=== PATIENT | female | born 1960 | race Caucasian/White ===

== ENCOUNTER 2019-05-24 23:21 | Emergency (ER) | payer OTHER ==
[~2019-05-24] VITALS: Ht 157.5 cm; Wt 88.6 kg
[2019-05-24] MEDS ORDERED: LAMO200T3 PO (23:56)
[2019-05-24] MEDS ORDERED: HYDR25TAB PO (23:56)
[2019-05-24] MEDS ORDERED: AMIT-253 PO (23:56)
[2019-05-24] MEDS ORDERED: HYDR50TAB PO (23:56)
[2019-05-24] MEDS ORDERED: TOPI200T7 PO (23:56)
[2019-05-24] MEDS ORDERED: BUPR100T3 PO (23:56)
[2019-05-24] MEDS ORDERED: AMLO10TA5 PO (23:56)
[2019-05-24] MEDS ORDERED: CELLOPD OD (23:56)
[2019-05-24] MEDS ORDERED: CLON0.5T2 PO (23:56)
[2019-05-24] MEDS ORDERED: SIMV10TA21 PO (23:56)
[2019-05-25 00:14] LABS: HEMATOCRIT 46.9 % (36.0-47.0); HEMOGLOBIN 15.9 g/dl (12.0-15.5); MEAN CORPUSCULAR HEMOGLOBIN 31.9 pg (27.0-33.0); MEAN CORPUSCULAR HGB CONC 33.9 g/dl (32.0-36.5); PLATELET COUNT, AUTOMATED 338 10^3/uL (150-450); RED BLOOD COUNT 4.99 10^6/uL (4.00-5.40); WHITE BLOOD COUNT 9.5 10^3/uL (4.0-10.0)
[2019-05-25 00:24] LABS: BLOOD UREA NITROGEN 17 MG/DL (7-18); CALCIUM LEVEL 9.4 MG/DL (8.5-10.1); CARBON DIOXIDE LEVEL 27 MEQ/L (21-32); CHLORIDE LEVEL 103 MEQ/L (98-107); CREATININE FOR GFR 1.08 MG/DL (0.55-1.30); GLOMERULAR FILTRATION RATE 55.7 (>51); GLUCOSE, FASTING 108 MG/DL (70-100); POTASSIUM SERUM 3.1 MEQ/L (3.5-5.1); SODIUM LEVEL 141 MEQ/L (136-145)
[2019-05-25 00:25] LABS: ACETAMINOPHEN LEVEL < 2.0 UG/ML (10.0-30.0); ALBUMIN 3.6 GM/DL (3.2-5.2); ALT/SGPT 20 U/L (12-78); BILIRUBIN,DIRECT 0.1 MG/DL (0.0-0.2); BILIRUBIN,TOTAL 0.4 MG/DL (0.2-1.0); ETHYL ALCOHOL (ETHANOL) < 0.003 % (0.000-0.010); SALICYLATE LEVEL < 1.7 MG/DL (5.0-30.0); TOTAL PROTEIN 7.9 GM/DL (6.4-8.2)
[2019-05-25] MEDS ORDERED: AMITRIPTYLINE 10 MG TAB PO ONE (00:45)
[2019-05-25] MEDS ORDERED: TOPIRAMATE (TopAMAX) 25 MG TAB PO ONE (00:45)
[2019-05-25] MEDS ORDERED: lamoTRIgine 100MG TAB PO ONE (00:45)
[2019-05-25] MEDS ORDERED: SIMVASTATIN 10 MG TAB PO ONE (00:45)
[2019-05-25 00:49] LABS: AMPHETAMINES LEVEL URINE NEGATIVE (NEGATIVE); BARBITURATES URINE NEGATIVE (NEGATIVE); BENZODIAZEPINES URINE NEGATIVE (NEGATIVE); CANNABINOIDS URINE POSITIVE (NEGATIVE); COCAINE METABOLITE URINE NEGATIVE (NEGATIVE); METHADONE URINE NEGATIVE (NEGATIVE); OPIATES URINE NEGATIVE (NEGATIVE); PHENCYCLIDINE URINE NEGATIVE (NEGATIVE)
[2019-05-25] MEDS ORDERED: POTASSIUM CHLORIDE 10 MEQ SR TABLET PO ONE (01:00)
[2019-05-25] MEDS ORDERED: METAL LOCK LOOP XX ONE (01:04)
[2019-05-25] MEDS ORDERED: TOPI100T9 PO (01:20)
[2019-05-25 03:06] LABS: APPEARANCE, URINE CLEAR (CLEAR); BACTERIA, URINE AUTO 1+ (NEGATIVE); BILIRUBIN, URINE AUTO NEGATIVE (NEGATIVE); BLOOD, URINE BLOOD 1+ (NEGATIVE); COLOR, URINE YELLOW (YELLOW); GLUCOSE, URINE (UA) AUTO NEGATIVE (NEGATIVE); KETONE, URINE AUTO NEGATIVE (NEGATIVE); LEUKOCYTE ESTERASE, URINE AUTO 3+ (NEGATIVE); NITRITE, URINE AUTO NEGATIVE (NEGATIVE); PROTEIN, URINE AUTO NEGATIVE (NEGATIVE); RBC, URINE AUTO 3 /HPF (0-3); SPECIFIC GRAVITY URINE AUTO 1.013 (1.002-1.035); SQUAMOUS EPITHELIAL CELL UR AU 2 /HPF (0-6); UROBILINOGEN, URINE AUTO 0.2 mg/dL (0.0-2.0); WBC, URINE AUTO 122 /HPF (0-3)
[2019-05-25] MEDS ORDERED: BACTRIM 160MG/800MG DS TAB PO ONE (07:45)
[2019-05-25] MEDS ORDERED: ACETAMINOPHEN TAB 650MG DOSE (2X325MG) PO ONE (10:30)
[2019-05-25] MEDS ORDERED: buPROPion (WELLBUTRIN SR) 100 MG SR TAB PO ONE (11:00)
[2019-05-25] MEDS ORDERED: hydroCHLOROthiazide 25 MG TAB PO ONE (11:00)
[2019-05-25] MEDS ORDERED: amLODIPine 10 MG TAB PO ONE (11:00)
[2019-05-25 11:15] VITALS: BP 129/78
[2019-05-25 12:41] VITALS: BP 121/85
--- NOTE | 2019-05-25 19:44 | ECGEPIP ---
[facility] - ED Test Date: 2019-05-25 Pat Name: JAE LIMA Department: Room: - Gender: Female Social [employer] School: : 1960 Requested By: CLARENCE RAMIREZ Order Number: [id number] Reading MD: Dean Youngblood Measurements Intervals [place] Rate: 98 P: 46 NV: 203 QRS: 76 QRSD: 117 T: 43 QT: 381 QTc: 488 Interpretive Statements SINUS RHYTHM WITH FIRST DEGREE BLOCK POSSIBLE RIGHT ATRIAL ENLARGEMENT POSSIBLE LEFT ATRIAL ENLARGEMENT MODERATE INTRAVENTRICULAR CONDUCTION DELAY PROLONGED QTC NONSPECIFIC ST T WAVE CHANGES NO PRIOR ECG FOR COMPARISON Electronically Signed on 05-25-2019 19:43:52 EST by Dean Youngblood
[2019-05-25] MEDS ORDERED: ENTER DRUG NAME HERE (PATIENT'S OWN MED) PO ONE ×4 (21:00)
== END 2019-05-25 12:45 | disposition short-term general hospital (02) ==
LOC: M ED 23:21
DX: F32.9 Major depressive disorder, single episode, unspecified (principal); R45.851 Suicidal ideations; E87.6 Hypokalemia; I44.0 Atrioventricular block, first degree; I45.89 Other specified conduction disorders; F31.9 Bipolar disorder, unspecified; Z79.899 Other long term (current) drug therapy
CPT/HCPCS: 80048; 80076; 80307; 81001; 84443; 85027; 87086; 93005; 99285; G0480

== ENCOUNTER → 2020-01-09 | Outpatient (CLI) | payer SELFPAY ==
[~2020-01-09] MED LIST: AMIT-253 PO; AMLO1TAB25 PO; BUPR100T3 PO; CELLOPD OD; CLON0.5T2 PO; HYDR25TAB PO; HYDR50TAB PO; LAMO200T3 PO; SIMV10TA21 PO; TOPI100T9 PO; TOPI200T7 PO
== END ==
LOC: M LABSMTC 11:00
PROVIDERS: ATTEND Family Medicine
DX: Z11.59 Encounter for screening for other viral diseases (principal)

== ENCOUNTER → 2020-01-14 | Outpatient (CLI) | payer SELFPAY | LOC: M LABSMTC 10:15 | PROVIDERS: ATTEND Ophthalmology | DX: Z11.59 Encounter for screening for other viral diseases (principal); Z20.828 Contact with and (suspected) exposure to other viral communicable diseases | CPT/HCPCS: C9803; U0003 ==

== ENCOUNTER 2020-07-23 18:51 | Emergency (ER) | payer OTHER ==
[~2020-07-23] VITALS: Ht 157.5 cm; Wt 111.4 kg
[~2020-07-23 18:51] MED LIST changes: -CELLOPD OD; +CELLOPD OU; +HYDR-3490 PO; -HYDR25TAB PO
--- OUTSIDE RECORDS SUMMARY | 2020-07-23 18:56 | CCD ---
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 --21:30 10/29/19September, R.N.ADDITIONAL SURGERIES: 2 Clinical Report - Nurses [facility] Emergency Department [address] [place] [address] Phone #: ext- [phone] 10/29/2019 21:26 Patient: JAE LIMA Sex: F : 1960 Age: 58y Hysterectomy. Radical neck for infection. Repair of cystocele and rectocele. Shoulder Surgery (Roddy). Tonsillectomy. --21:30 10/29/19 Halie Ruiz R.N. History PAST MEDICAL HX: The patient has had a hysterectomy. SOCIAL HX: Current some days light tobacco smoker (cigarette)- less than 1/2 a pack per day. No alcohol use or drug use. She was offered HIV testing but declined. She has not traveled outside the [place] Infectious disease exposure: No infectious disease exposure. (covid screen neg). Patient is not a known carrier of tuberculosis, hepatitis, HIV, MRSA or VRE. Patient is not a known carrier of CRE. SELF HARM ASSESSMENT: Self harm assessment was performed. The patient answered "no" to the question(s) "Have you recently felt down, depressed, or hopeless?", "Do you have thoughts of harming or killing yourself?", "Do you have a plan for harming or killing yourself?", "Have you recently had thoughts about harming or killing others?", "Do you have any dangerous items in your possession?", "Have you noticed less interest or pleasure in doing things?", "Are you here because you tried to hurt yourself?" and "Have you ever tried to hurt yourself before today?". ABUSE ASSESSMENT: Abuse assessment. yes. The patient had positive responses to the question(s) "Do you feel safe in your home?". No report of abuse. NUTRITIONAL RISK ASSESSMENT: The nutritional risk assessment revealed no deficiencies. FUNCTIONAL ASSESSMENT: Functional assessment: no impairments noted. LEARNING NEEDS ASSESSMENT: The learning needs assessment revealed no barriers. FALL RISK ASSESSMENT: Fall risk assessment completed. No risk factors identified. SKIN INTEGRITY ASSESSMENT: Skin integrity risk assessment completed. No skin integrity risk identified. --:10/29/19September, R.N. Interventions To treatment room. --:10/29/19September, R.N.PHYSICAL ASSESSMENTAmbulatory to room.GENERAL / NEURO / PSYCH: Alert. Appears in pain and in distress. Oriented X 4.HEENT: Pupils equal, round and reactive to light. Mucous membranes are pink.RESPIRATORY: Respirations not labored. Breath sounds within normal limits.CVS: Capillary refill less than 2 seconds. Pulses within normal limits.GI / : Abdomen nontender. 3 Clinical Report - Nurses [facility] Emergency Department [address] [place] [address] Phone #: ext- [phone] 10/29/2019 21:26 Patient: JAE LIMA Sex: F : 1960 Age: 58y SKIN: Skin is intact, warm and dry. Skin rash on the right knee, right leg, right ankle, left knee, left leg and left ankle. --21:35 10/29/19 Nael Anderson RN.NURSING PROGRESS NOTESPatient gowned. Head of bed elevated. Reassurance given. Two patient identifiers checked. Bedplaced in lowest position. Brakes of bed on. Patient ready for evaluation- PA notified. --:[facility]/19[facility] 22:10/29/2019 Keflex (Cephalexin Monohydrate) PO Capsules 500 mg given. Allergies verified and confirmed 5 rights. Information reviewed with patient including reason for taking this medication. Verbalizes understanding. --22:10/29/19 Nael Anderson RN 22:02 10/29/2019 Prednisone PO Tablets 60 mg given. Allergies verified and confirmed 5 rights. Information reviewed with patient including reason for taking this medication. Verbalizes understanding. --22:10/29/19 Nael Anderson RN.DISPOSITION / DISCHARGE Condition at departure: improved and stable. Discharge instructions provided and reviewed with the patient. Reviewed medication(s). Prescription(s) sent electronically to pharmacy. Patient verbalized understanding. Written instructions provided in [place]. The patient was discharged by the physician email marketing assistant. She was discharged home. She left ambulatory and via private vehicle. Patient driving. --22:14 10/29/19 Nael colon RN 22:13 10/29/19. BP: 93/70. MAP: 77. HR: 94. RR: 16. O2 saturation: 97%. Pain level now: 0/10. --22:14 10/29/19 Nael Anderson RN.Locked/Released at 10/29/2019 22:14 by Nael Anderson RN Name Value Range Interpretation Code Description Data Alice rce(s) Supporting Document(s) ID Date Data Source [id number] 10/29/2019 09:36:[address] [facility] 1 Clinical Report - Physicians/Mid Levels [facility] Emergency Department [address] [place] [address] Phone #: ext- [phone] 10/29/2019 21:26 Patient: JAE LIMA Sex: F : 1960 Age: 58y Time Seen: 21:50 10/29/2019. Arrived- By private vehicle. Historian- patient.HISTORY OF PRESENT ILLNESS Chief Complaint: SKIN RASH. This started yesterday pt c/o red rash to front of roddy lower legs. States yesterday it was on her left foot and right lower leg. Today it got worse and it's on both lower legs. pt denies being in the sun. pt states it is itchy and feels like needles poking her and is still present. It was abrupt in onset. It is described as itchy and burning. It has been located on the right lower extremity and left lower extremity. No cause has been identified. Similar symptoms previously. None. Recent medical care: Not recently seen/assessed.REVIEW OF SYSTEMSNo fever, chills, sore throat, cough or difficulty breathing. No hoarseness, lump in throat, enlarged lymphnodes, headache or eye irritation. No chest pain, abdominal pain, nausea, diarrhea or difficulty withurination. No genital lesions, joint pain, vomiting or vaginal discharge.PAST HISTORYProblems:Depression.Anxiety Reaction.Bipolar Disorder.Hypertension. Additional Surgeries: Hysterectomy. Radical neck for infection. Repair of cystocele and rectocele. Shoulder Surgery. Tonsillectomy. Medications: Melatonin. Beta Colt. hydroCHLOROthiazide Oral. lamoTRIgine ER Oral. La MICtal Oral. buPROPion HCl Oral. traZODone HCl Oral. 2 Clinical Report - Physicians/Mid [facility] Emergency Department [address] [place] [address] Phone #: ext- [phone] 10/29/2019 21:26 Patient: JAE LIMA Sex: F : 1960 Age: 58y Allergies: No Known Drug Allergy.SOCIAL HISTORYLight tobacco smoker (cigarette)- less than 1/2 a pack per day. No alcohol use or drug use.PHYSICAL EXAMVital Signs: 10/29/2019 21:26 BP: 182/103. MAP: 129. HR: 105. RR: 20. O2 saturation: 97%. Temp: 97.5F. Pain level now: 0/10. Have been reviewed as abnormal. Hypertensive. Tachycardic. Oxygensaturation normal.Appearance: Alert. Oriented X3. No acute distress.Eyes: Pupils equal, round and reactive to light. Conjunctivae and eyelids normal.ENT: Ears normal. Nose normal. Pharynx normal.Neck: Neck supple.CVS: Tachycardia. Heart sounds normal.Respiratory: No respiratory distress.Abdomen: Nontender.Skin: Skin warm and dry. Normal skin turgor. Moderate, well-demarcated, erythematous, macular skinrash with an erythematous base on the right leg and left leg- perfect sock or pant line circumferentiallyaroung both legs where rash stops c/w sun burn or contact dermatitis. No blanching skin rash.Extremities: Extremities nontender.Neuro: Oriented X 3.PROGRESS AND PROCEDURESCourse of Care: :Oct 29 2019. Evaluation after observation. (Discussed possible sunburn vs.exposure to irritant, pt reports adamantly it is not sunburn however seems to be obvious explanation dueto sharp margin. Possible irritant dermatitis from a spray. Pt is concerned about cellulitis will treat withkeflex, unlikely that s its cellulitis due to perfect line). Patient counseled in person regarding the patient's stable condition, diagnosis and need for follow-up. Patient agrees with plan of care. :Oct 29 2019. Disposition: Discharged home in good and improved condition (:Oct 29 2019).CLINICAL IMPRESSION Cellulitis of the right lower leg and left lower leg. First degree sunburn.INSTRUCTIONS Your Current Medications: Your current home medications have been reviewed. 3 Clinical Report - Physicians/Mid Levels [facility] Emergency Department [address] [place] [address] Phone #: fye- [phone] 10/29/2019 21:26 Patient: JAE LIMA Sex: F : 1960 Age: 58y CONTINUE TAKING THE FOLLOWING MEDICATIONS: Beta Colt*. buPROPion HCl Oral. hydroCHLOROthiazide Oral. LaMICtal Oral. lamoTRIgine ER Oral. Melatonin*. traZODone HCl Oral. Prescription Medications: Keflex 500 mg capsule Take 1 capsule three times a day as directed for 10 days -- Dispense 30 capsule. Refills: 0. Substitution permitted. [facility] - [facility] [address], [place] [id number]. . prednisone 20 mg tablet Take 3 tablet once a day for 5 days -- Dispense 15 tablet. Refills: 0. Substitution permitted. Pharmacy - [facility] [address] [facility] ; [place], [place] [phone]. . Follow-up: Follow up with your doctor as scheduled. Reason for referral: evaluation and treatment. Summary of care provided to patient. Understanding of the discharge instructions verbalized by patient.(Electronically signed by [place]CR[place]IA Smart 10/30/2019 07:16) Name Value Range Interpretation Code Description Data Alice rce(s) Supporting Document(s) ID Date Data Source [id number] 08/30/2019 12:35:00 [place] [address] RESPIRATORY CARE REPORT ==== ---------NAME------- NUMBER SEX AGE ADMIT DISC. XRAY# F/C CHUCKY ROWE [id number] F 58 08/28/19 08/29/19 [id number] LBA E/R DATE OF : 1960 M/R# [id number] PH#: [id number] LOCATION: EMERGENCY DEPT EKG [id number] COMP LETE:08/29/19 03:22 T [id number] PHYSICIAN: TAWANNA ESPINOSA Name Value Range Interpretation Code Description Data Alice rce(s) Supporting Document(s) ID Date Data Source [id number] 08/28/2019 09:38:[address] [facility] [address] [facility] Emergency Department [address] [place] [address] Phone #: ext- [phone] 08/28/2019 21:38 Patient: JAE LIMA Sex: F : 1960 Age: 58yWEIGHT:102.0 kg (S) HEIGHT:61 inches (S) BMI:42.5ALLERGIES: NoneCHIEF COMPLAINT: syncopeDIAGNOSIS: Contusion, SyncopeLAB ORDERSOrder Description Priority Entered Acknowledged InitialedUrinalysis (Clean STAT 21:49 08/28/2019 Ack'd: 22:22 23:20 Toyin Fleming [facility]) Danuta Hadley R.N., R.N. Physician;BNP STAT 21:49 08/28/2019 22:03 Nael Anderson RN Physician;CBC w Diff STAT 21:49 08/28/2019 22:03 Nael Anderson RN Physician;CMP STAT 21:49 08/28/2019 22:03 Nael Anderson RN Physician;CPK STAT 21:49 08/28/2019 22:03 Nael Anderson RN Physician;D-Dimer STAT 21:49 08/28/2019 22:03 Nael Anderson RN Physician;Lactic Acid STAT 21:49 08/28/2019 22:03 Nael Anderson RN Physician;Lipase STAT 21:49 08/28/2019 22:03 Nael Anderson RN Physician;Rapid Strep Screen STAT 21:49 08/28/2019 22:20 Aman Fleming R.N. Physician;Influenza Nasal A B STAT 21:49 08/28/2019 22:20 Aman Fleming R.N. Physician;FLU PANEL STAT 22:41 08/28/2019 23:20 Lonnie, [address] [facility] Emergency Department [address] [place] [address] Phone #: ext- [phone] 08/28/2019 21:38 [id number] Sex: F : 1960 Age: 58y Aman Tipton R.N. Physician;DIAGNOSTIC STUDY ORDERSOrder Description Priority Entered Acknowledged InitialedCT Head W/O Cont STAT 23:13 08/28/2019 Ack'd: 23:20 23:50 Lonnie,(Oxygen?(No)) Danuta Hadley R.N., R.N. Physician; Reason for Study: SyncopeCT Chest W/O Cont STAT 23:13 08/28/2019 Ack'd: 23:20 23:50 Lonnie,(Oxygen?(No)) Danuta Hadley R.N., R.N. Physician; NOTES: Syncope Reason for Study: Shortness of BreathCT ABD PEL W/O STAT 23:13 08/28/2019 Ack'd: 23:20 23:50 Lonnie,Oral W/O IV Danuta Hadley R.N., R.N.Contrast Physician;(Oxygen?(No))(IV?(No)) Reason for Study: Abdominal PainMEDICATION/IV/DRIP/FLUID ORDERSOrder Description Priority Entered Acknowledged InitialedIV NS : Bolus 1000 21:50 08/28/2019 Ack'd: 22:21 Danuta Fleming R.N.mL, t hen 250 mL/hr Aman Stacy Cancelled: Unable to obtain IV access(can be titrated per Physician; 23:20 Danuta FlemingNLorenaadditionalphysicianinstruction)Zofran 4 mg IVP X 1 21:50 08/28/2019 Ack'd: 22:21 Danuta Fleming.NLorenadose: 4 mg (NOW Aman Stacy Cancelled: Physician Order 23:14 Alvaro Physician; Tawanna LinZolucero ODT PO 4 23:14 08/28/2019 Ack'd: 23:20 23:22 Lonnie,mg (NOW) Danuta Hadley R.N., R.N. Physician;Meclizine PO 25 mg 01:07 08/29/2019 Ack'd: 01:08 01:15 Lonnie(NOW) Danuta Hadley R.N., R.N. Physician;GENERAL ORDERSOrder Description Priority Entered Acknowledged InitialedCardiac Monitor 21:50 08/28/2019 22:03 Nael(continuous) Aman Anderson RN [address] [facility] Emergency Department [address] [place] [address] Phone #: ext- [phone] 08/28/2019 21:38 Patient: JAE LIMA Sex: F : 1960 Age: 58y Physician;EKG 21:50 08/28/2019 22:20 Aman Fleming R.N. Physician;Saline Lock 21:50 08/28/2019 Ack'd: 22:21 Danuta Fleming R.N. Cancelled: Unable to obtain IV access Physician; 23:50 Danuta Fleming R.N.Pulse oximeter 21:50 08/28/2019 22:03 Nael(Continuous) Aman Anderson RN Physician;[Electronically signed by Danuta Fleming R.N. (:08/29/2019)][Electronically signed by Aman Stacy Physician (05:28 08/29/2019)][Electronically locked by Danuta Fleming R.N. (08/29/2019)] Name Value Range Interpretation Code Description Data Alice rce(s) Supporting Document(s) ID Date Data Source [id number] 08/28/2019 09:38:[address] [facility] [address] [facility] Emergency Department [address] [place] [address] Phone #: ext- [phone] 08/28/2019 21:38 Patient: JAE LIMA Sex: F : 1960 Age: 58yWeight: 102.0 kgHeight/Length: 61 in.BMI: 42.5ALLERGIES: NoneThe patient's Home Medications are listed below:THE FOLLOWING MEDICATIONS NEED TO BE RECONCILED: Aspirin Oral 81 mg, daily Benztropine Mesylate Oral 1 mg, daily Depakote Oral 750 mg, 2x a day, 750 mg AM and 500 mg at night Lamictal Lasix Oral 40 mg, daily PredniSONE Oral 10 mg, daily Pro-air TRAZADONE Zithromax Oral 250 mg, dailyThe source(s) of the original Home Medication information:Not obtained.The following Medications were given to the patient in the Emergency Department:Zofran ODT [PO] PO 4 mg, administered: 08/28/2019 11:22:00 PMMeclizine [PO] PO 25 mg, administered: 08/29/2019 1:15:00 AMThe following Medications were prescribed to the patient: [address] [facility] Emergency Department [address] [place] [address] Phone #: ext- [phone] 08/28/2019 21:38 Patient: JAE LIMA Sex: F : 1960 Age: 58ymeclizine 25 mg tablet Take 1 tablet every eight hours as needed for 5 days -- for nausea / dizziness.Dispense 15 tablet. Refills: 0. Substitution permitted.Pharmacy - [facility] - [address] [facility] ; [place], [place] [phone]. . -- Aman Stacy, Physician Name Value Range Interpretation Code Description Data Alice rce(s) Supporting Document(s) ID Date Data Source [id number] 08/28/2019 09:38:[address] [facility] [address] [facility] Emergency Department [address] [place] [address] Phone #: ext- [phone] 08/28/2019 21:38 Patient: JAE LIMA Sex: F : 1960 Age: 58yWeight: 102.0 kgHeight/Length: 61 inBMI: 42.5ALLERGIES: None Date/Time Medication Administered Medication OrderedGiven ZOFRAN ODT [PO] (ONDANSETRON Zofran ODT PO 4 mg (NOW)23:22 08/28/2019 HCL)Danuta Fleming, RLorenaNLorena Dose: 4 mg Oral Disintegrating Tablets POGiven MECLIZINE [PO] Meclizine PO 25 mg (NOW)01:15 08/29/2019 Dose: 25 mg Tablets Danuta Vitale RLorenaNLorena Name Value Range Interpretation Code Description Data Alice rce(s) Supporting Document(s) ID Date Data Source [id number] 08/28/2019 09:38:[address] [facility] [address] [facility] Emergency Department [address] [place] [address] Phone #: ext- [phone] 08/28/2019 21:38 Patient: JAE LIMA Sex: F : 1960 Age: 58yVasovagal syncope.Contusion to the head and fo rehead.INSTRUCTIONSDrink plenty of fluids.Warnings: Further evaluation is necessary.GENERAL WARNINGS: Return or contact your physician immediately if your condition worsens orchanges unexpectedly, if not improving as expected, or if other problems arise.Prescription Medications:meclizine 25 mg tablet Take 1 tablet every eight hours as needed for 5 days -- for nausea / dizziness.Dispense 15 tablet. Refills: 0. Substitution permitted.Pharmacy - [facility] - [address] [facility] ; [place], [place] [phone]. .Follow-up:Follow up with your doctor today if not better. Call for an appointment. Reason for referral: evaluation,treatment and Syncope / Forehead contusion.Understanding of the discharge instructions verbalized by patient. ADDITIONAL INFORMATIONFacial ContusionA contusion is another word for a bruise. It happens when small blood vessels break open and leakblood into the nearby area. A facial contusion can r esult from a bump, hit, or fall. This may happenduring sports or an accident. Symptoms of a contusion often include changes in skin color(bruising), swelling, and pain.The swelling from the contusion should decrease in a few days. Bruising and pain may take severalweeks to go away.Home care [address] [facility] Emergency Department [address] [place] [address] Phone #: ext- [phone] 08/28/2019 21:38 Patient: JAE LIMA Sex: F : 1960 Age: 58y If you have been prescribed medicines for pain, take them as directed. To help reduce swelling and pain, wrap a cold pack or bag of frozen peas in a thin towel. Put it on the injured area for up to 20 minutes. Do this a few times a day until the swelling goes down. If you have scrapes or cuts on your face requiring stiches or other closures, care for them as directed. For the next 24 hours (or longer if instructed): o Don't drink alcohol, or use sedatives or medicines that make you sleepy. o Don't drive or operate machinery. o Don't do anything strenuous. Don't lift or strain. o Don't return to sports or other activity that could result in another head injury. Note about concussions Because the injury was to your head, it is possible that a concussion (mild brain injury) could result. Symptoms of a concussion can show up later. Be alert for signs and symptoms of a concussion. Seek emergency medical care if any of these develop over the next hours to days: Headache Nausea or vomiting Dizziness Sensitivity to light or noise Unusual sleepiness or grogginess Trouble falling asleep Personality changes Vision changes Memory loss Confusion Trouble walking or clumsiness Loss of consciousness (even for a short time) Inability to be awakened [address] [facility] Emergency Department [address] [place] [address] Phone #: ext- [phone] 08/28/2019 21:38 Patient: JAE LIMA Sex: F : 1960 Age: 58y Feeling "off" or slow as if in a dazeFollow-up careFollow up with your healthcare provider, or as directed.When to seek medical adviceCall your healthcare provider right away if any of these occur: Swelling or pain that gets worse, not better New swelling or pain Warmth or drainage from the swollen area or from cuts or scrapes Fluid drainage or bleeding from the nose or ears Fever of 100.4F (38C) or higher, or as directed by your healthcare providerCall 911Call 911 if any of the following occur: Repeated vomiting Unusual drowsiness or trouble awakening Fainting or loss of consciousness Seizure Worsening confusion, memory loss, dizziness, headache, behavior, speech, or vision 1999- 2017 [employer]. [address] [place] [address], [place] [address]. All rights reserved. This information is not intended as asubstitute for professional medical care. Always follow your healthcare professional's instructions.Fainting: Vagal ReactionFainting (syncope) is a temporary loss of consciousness that is associated with a loss of posturaltone. It's also called passing out. It occurs when blood flow to the brain is less than normal. Yourhealthcare provider believes that your fainting was because of a vagal reaction. This condition is not asign of serious disease.A vagal reaction is a response in your body that causes your pulse to slow down or the blood vesselsto expand. This causes your blood pressure to fall. And this sends less blood to your brain if you arestanding or sitting. That results in dizziness, near- fainting, or fainting. Lying down usually stops thereaction within 60 seconds[address] [facility] Emergency Department [address] [place] [address] Phone #: ext- [phone] 08/28/2019 21:38 Patient: JAE LIMA Sex: F D OB: 1960 Age: 58yThis response can occur during sudden fear, severe pain, emotional stress, overexertion,overheating, hunger, nausea or vomiting, prolonged standing, or standing up after sitting or lying for along time.Home careFollow these guidelines when caring for yourself at home: Rest today. Go back to your normal activities as soon as you are feeling back to normal. Stay hydrated and avoid skipping meals. If you feel lightheaded or dizzy, lie down right away. Or sit with your head lowered between your knees.Follow-up careFollow up with your healthcare provider, or as advised.Call [phone] if any of the following occur: Another fainting spell that's not explained by the common causes listed above Pain in your chest, arm, neck, jaw, back, or abdomen Shortness of breath Severe headache or seizure Your heart beats very rapidly, very slowly, or irregularly (palpitations) [phone] [employer] [facility], [place] [address]. All rights reserved. This information is not intended as asubstitute for professional medical care. Always follow your healthcare professional's instructions. You have been given the following additional information: Facial Contusion Syncope, Vasovagal(Electronically signed by Aman Stacy, Physician 08/29/2019 05:28) [address] [facility] Emergency Department [address] [place] [address] Phone #: ext- [phone] 08/28/2019 21:38-------- Patient: JAE LIMA Sex: F : 1960 Age: 58y Name Value Range Interpretation Code Description Data Alice rce(s) Supporting Document(s) ID Date Data Source [id number] 08/28/2019 09:38:[address] [facility] 1 Clinical Report - Nurses [facility] Emergency Department [address] [place] [address] Phone #: ext- [phone] 08/28/2019 21:38 Patient: JAE LIMA Sex: F : 1960 Age: 58yTRIAGEArrived by private vehicle. Historian: patient. ( seen at [facility] this am and was given tamiflu).Triage time: 21:39 08/28/2019. Acuity: LEVEL 3.Chief Complaint: SYNCOPE and was walking to the bathroom and vomited and then passed out, left sideof head hit cabinet.This occurred just prior to arrival.SEPSIS SCREEN: Negative (no infection suspected/documented). --21:44 08/28/19 Danuta Fleming R.N.21:39 08/28/19. BP: 124/77. MAP: 92. HR: 80. RR: 18. O2 saturation: 95%. Temp: 98.5 F. Pain level now:010. --21:44 08/28/19 Danuta Fleming R.N.Weight: 102 kg stated. Height/Length: 61 inches Per Patient. BMI: 42.5. --21:38 08/28/19 Danuta Fleming R.N.MedicationsAspirin Oral 81 mg, daily . Benztropine Mesylate Oral 1 mg, daily. Depakote Oral 750 mg, 2x a day (750 mg AM and 500 mg at night). Lasix Oral 40 mg, daily. PredniSONE Oral 10 mg, daily. Pro-air. Zithromax Oral 250 mg, daily. --21:41 08/28/19 Danuta Fleming R.N. Lamictal. --21:43 08/28/19 Danuta Fleming R.N. TRAZADONE. --21:43 08/28/19 Danuta Fleming R.N.AllergiesNone. --21:41 08/28/19 Danuta Fleming R.N.HistoryPAST MEDICAL HX: Immunizations: up-to-date.SOCIAL HX: Never smoker. No alcohol use or drug use. She was offered HIV testing but declined.Patient education was provided. She was offered hepatitis C testing but declined. Patient education wasprovided. She has not traveled outside the [place]Infectious disease exposure: The patient was exposed to influenza.SELF HARM ASSESSMENT: Self harm assessment was performed. The patient answered "no" to thequestion(s) "Have you recently felt down, depressed, or hopeless?", "Do you have thoughts of harming orkilling yourself?", "Do you have a plan for harming or killing yourself?", "Have you recently had thoughts 2 Clinical Report - Nurses [facility] Emergency Department [address] [place] [address] Phone #: ext- [phone] 08/28/2019 21:38 [id number] Sex: F : 1960 Age: 58y about harming or killing others?", "Do you have any dangerous items in your possession?", "Have you noticed less interest or pleasure in doing things?", "Are you here because you tried to hurt yourself?" and "Have you ever tried to hurt yourself before today?". ABUSE ASSESSMENT: Abuse assessment. Abuse denied. No report of abuse. NUTRITIONAL RISK ASSESSMENT: The nutritional risk assessment revealed no deficiencies. FUNCTIONAL ASSESSMENT: Functional assessment: no impairments noted. LEARNING NEEDS ASSESSMENT: The learning needs assessment revealed no barriers. FALL RISK ASSESSMENT: Fall risk assessment completed. Risk factors identified include nausea and dizziness. SKIN INTEGRITY ASSESSMENT: Skin integrity risk assessment completed. No skin integrity risk identified. --21:44 08/28/19 Danuta Fleming R.N. Interventions Identification band on patient. To treatment room. Advanced care plan discussed with patient. Patient does not have advanced directive. --21:44 08/28/19 Danuta Fleming R.N.PHYSICAL ASSESSMENTTo room via stretcher.GENERAL / NEURO / PSYCH: Oriented X 4. Alert. Speech within normal limits.HEENT: No facial asymmetry noted. Pupils equal, round and reactive to light.RESPIRATORY: Breath sounds within normal limits. Respirations not labored.CVS: Normal sinus rhythm noted. Capillary refill less than 2 seconds.GI / : The patient has had nausea. Emesis noted. Abdomen soft and nontender.SKIN: Skin is warm and dry. --21:47 08/28/19 Danuta Fleming R.N.NURSING PROGRESS NOTESTwo patient identifiers checked. Call light placed in reach. Bed placed in lowest position. Brakes of bedon. --21:44 08/28/19 Danuta Fleming R.N. Head of bed elevated. Reassurance given. Call light placed in reach. Side rails up x 2. Bed placed in lowest position. Brakes of bed on. Patient ready for evaluation- ED physician notified. --21:48 08/28/19 Danuta Flmeing R.N. Care transferred and report given (Valerie GARCIA). --22:20 08/28/19 Nael Anderson RN ( pt. appears to be in no distress, vss, IV start attempted times 6 without success). --22:32 08/28/19 Danuta Fleming R.N. 3 Clinical Report - Nurses [facility] Emergency Department [address] [place] [address] Phone #: ext- [phone] 08/28/2019 21:38 Patient: JAE LIMA Sex: F : 1960 Age: 58y 23:22 08/28/2019 Zofran ODT (Ondansetron HCl) PO Oral Disintegrating Tablets 4 mg given. Allergies verified and confirmed 5 rights. Information reviewed with patient. Verbalizes understanding. --23:22 08/28/19 Danuta Fleming R.N. The patient reports no complaints and she is resting quietly. ( accepting gingerale with no reports of nausea and no vomiting noted). GENERAL / NEURO / PSYCH: Patient is calm and cooperative. Affect appears normal. Alert. Oriented X 4. RESPIRATORY: No respiratory distress. CVS: Normal sinus rhythm noted. SKIN: Skin is warm and dry. --23:23 08/28/19 Danuta Fleming R.N. 23:22 08/28/19. BP: 122/86. MAP: 98. HR: 81. RR: 18. O2 saturation: 99%. Pain level now: 0/10. --23:23 08/28/19 Danuta Fleming R.N. 23:51 08/28/19. Patient transported to [place] by wheelchair. --23:51 08/28/19 Danuta Fleming R.N. 01:15 08/29/2019 Meclizine PO Tablets 25 mg given. Allergies verified and confirmed 5 rights. Information reviewed with patient including sedative warning. Verbalizes understanding. --01:15 08/29/19 Danuta Fleming R.N.DISPOSITION / DISCHARGE Departure time: 01:23 08/29/2019. Condition at departure: stable. No learning barriers present. Discharge instructions provided and reviewed with the patient. Reviewed warnings. Reviewed medication(s). Treatments reviewed. Reviewed referrals. Patient verbalized understanding. Written instructions provided in [place]. The patient was di scharged by the physician. She was discharged home and accompanied by family. She left ambulatory and via private vehicle. Family member driving. --01:08/29/19 Danuta Fleming R.N. 01:22 08/29/19. BP: 122/84. MAP: 96. HR: 78. RR: 18. O2 saturation: 97%. Temp: 98.4 F. Pain level now: 010. --01:23 08/29/19 Danuta Fleming R.N.Locked/Released at 08/29/2019 01:23 by Danuta Fleming R.N. Name Value Range Interpretation Code Description Data Alice rce(s) Supporting Document(s) ID Date Data Source [id number] 0001 08/28/2019 09:38:[address] [facility] 1 Clinical Report - Physicians/Mid Levels [facility] Emergency Department [address] [place] [address] Phone #: ext- [phone] 08/28/2019 21:38 [id number] Sex[facility] F : 1960 Age: 58y Time Seen: 21:38 08/28/2019. Arrived- By ambulance. Historian- EMS personnel. Disposition decision: 01:04 08/29/2019.HISTORY OF PRESENT ILLNESS Chief Complaint: SYNCOPE. This occurred today. The patient recovered at the scene. It was abrupt in onset. Event was not witnessed. At time of event, she was sitting (on toilet). The patient felt faint, lost consciousness and collapsed. No seizure activity or incontinence. The patient had preceding symptoms of light-headedness and nausea. Had a single episode of syncope. The episode was brief and lasted seconds. Location of injuries- head (Forehead). Currently she has symptoms. Currently she does not feel normal. Currently has nausea and headache. (Syncopal while having bowel movement on toilet and she vomited). Similar symptoms previously. None. Recent medical care: Not recently seen/assessed.REVIEW OF SYSTEMSThe patient has had a moderate frontal headache (Contusion to forehead). She has had moderatedizziness (Earlier). No weakness, chest pain, palpitations, abdominal pain or vomiting. No diarrhea,black stools, numbness, bloody stools or fever. No sore throat, difficulty breathing, difficulty with urination,skin rash or enlarged lymph nodes. No cough or joint pain.PAST HISTORYPast history not negative. See nurses notes. Lung disease. Other disease. ( Restless legsAsthma). Surgeries: (Exploratory surgery).SOCIAL HISTORYNever smoker. No alcohol use or drug use. No recent travel.ADDITIONAL NOTESThe nursing notes have been reviewed with agreement regarding the chief complaint, HPI, ROS, PMH andpatient medications and allergies.PHYSICAL EXAMVital Signs: 08/28/2019 21:39 BP: 124/77. MAP: 92. HR: 80. RR: 18. O2 saturation: 95%. Temp: 98.5 F.Pain level now: 0/10. Have been reviewed and appear to be correct. Blood pressure normal. Heart ratenormal. Respiratory rate normal. Temperature normal. Oxygen saturation normal.Appearance: Alert. Anxious. Appears to be in pain. Patient in moderate distress. In distress. 2 Clinical Report - Physicians/Mid Levels [facility] Emergency Department [address] [place] [address] Phone #: ext- [phone] 08/28/2019 21:38 Patient: JAE LIMA Sex: F : 1960 Age: 58y Eyes: Pupils equal, round and reactive to light. No nystagmus. Extraocular movements normal. ENT: Normal ENT inspection. TM's normal. Mucous membranes not moist. Pharynx abnormal. Dry mucous membranes present. (L forehead contusion). Neck: Normal inspection. Neck supple. CVS: Normal heart rate and rhythm. Heart sounds normal. Pulses normal. Respiratory: No respiratory distress. Painless inspiration. Breath sounds normal. Abdomen: Soft and nontender. No organomegaly. Back: Normal inspection. Skin: Skin warm and dry. Normal skin color. No rash. Normal skin turgor. Extremities: Extremities exhibit normal ROM. No lower extremity edema. Neuro: Alert. Oriented X 3. Mood/affect normal. Speech normal. Cranial nerves normal (as tested). No cerebellar findings. No motor deficit. No sensory deficit.LABS, X-RAYS, AND EKGCT Head: No acute disease.Chest CT: No acute disease.Laboratory Tests: Laboratory tests have been ordered, with results reviewed and considered in themedical decision making process. CT Head W/O Cont: (TAJ: 08/28/2019 23:13) ( MsgRcvd 08/29/2019 01:11) Final results Exam CT HEAD W/O CONTRAST [facility] [address] [place] [address] ---------NAME--------- NUMBER SEX AGE ADMIT DISC. XRAY# F/C TYPE CLARENCE ROWE [id number] F 58 08/28/19 550252 LBA E/R DATE OF : 1960 M/R# [id number] PH#: [id number] LOCATION: EMERGENCY DEPT TRANSCRIBED: 08/29/[address] HEAD W/O CONTRAST [id number] COMPLETED:08/29/19 31 kinsey [id number] Reason(s): Syncope P HYSICIAN: VENERUS BR R A D I O L O G Y R E P O R T PATIENT HISTORY: ACTUAL DOSE 853.8 mGy*cm syncope short of breath abdominal pain Patient hx menopause.Verification of 2 patient identifiers performed. Time Out performed. correct body part and side all verified prior to examination. Exam has been sent to [facility] - If further information is needed, the number is . Report will be faxed to ED and/or Xray. / BRAIN (DICOM Hx) CT HEAD WITHOUT CONTRAST COMPARISON: None HISTORY: ACTUAL DOSE 853.8 mGy*cm syncope short of breath abdominal pain Patient hx menopause.Verification of 2 patient identifiers performed. Time Out performed. correct body part and side all verified prior to examination. Exam has been sent to [facility] - If further information is needed, the number is . Report will be faxed to ED and/or Xray. TECHNIQUE: CT images through the head obtained without intravenous contrast. 3 Clinical Report - Physicians/Mid Levels [facility] Emergency Department [address] [place] [address] Phone #: ext- [phone] 08/28/2019 21:38 Patient: JAE LIMA Sex: F : 1960 Age: 58y FINDINGS: There is no evidence of acute large vessel territory infarct, hemorrhage, or mass. Calvarium appears intact. Orbits, paranasal sinuses, mastoid air cells are unremarkable. IMPRESSIONS: No acute intracranial abnormality. While performing the above CT examination, radiation dose reduction was accomplished utilizing automated exposure control, adjusting of the mA and kV based on the patient's body size and/or the use of imperative reconstructive techniques. Electronically Signed By: Chad Gracia M.D. , Radiologist Date/Time: 08/29/19 00:30CT Chest W/O Cont: (TAJ: 08/28/2019 23:13) ( MsgRcvd 08/29/2019 01:11) Final results Exam CT THORAX W/O CONTRAST [address] [address] ---------NAME--------- NUMBER SEX AGE ADMIT DISC. XRAY# F/C TYPE CLARENCE ROWE [id number] F 58 08/28/19 548136 LBA E/R DATE OF : 1960 M/R# [id number] PH#: [id number] LOCATION: EMERGENCY DEPT TRANSCRIBED: 08/29/[address] THORAX W/O CONTRAST [id number] COMPLETED:08/29/19 43 kinsey [id number] Reason(s): Shortness of Breath PHYSICIAN: TAWANNA BR R A D I O L O G Y R E P O R T == PATIENT HISTORY: ACTUAL DOSE 470.4 mGy*cm syncope short of breath abdominal pain Patient hx menopause.Verification of 2 patient identifiers performed. Time Out performed. correct body part and side all verified prior to examination. Exam has been sent to [facility] - If further information is needed, the number is . Report will be faxed to ED and/or Xray. / CORONAL, iDose (3) (DICOM Hx) CT CHEST WITHOUT CONTRAST COMPARISON: None HISTORY: ACTUAL DOSE 470.4 mGy*cm syncope short of breath abdominal pain Patient hx menopause.Verification of 2 patient identifiers performed. Time Out performed. correct body part and side all verified prior to examination. Exam has been sent to [facility] - If further information is needed, the number is . Report will be faxed to ED and/or Xray. TECHNIQUE: CT images through the chest obtained without intravenous contrast. FINDINGS: Heart size is normal. There is no focal consolidation, pneumothorax, or pleural effusion. No mediastinal lymphadenopathy. Noncontrast study without direct assessment of vascular structures. 4 Clinical Report - Physicians/Mid Levels [facility] Emergency Department [address] [place] [address] Phone #: ext- [phone] 08/28/2019 21:38 Patient: JAE LIMA Sex: F : 1960 Age: 58y Abdominal findings are described separately. IMPRESSIONS: Unremarkable noncontrast CT of the thorax. While performing the above CT examination, radiation dose reduction was accomplished utilizing automated exposure control, adjusting of the mA and kV based on the patient's body size and/or the use of imperative reconstructive techniques. Electronically Signed By: Chad Gracia M.D. , Radiologist Date/Time: 08/29/19 00:41CT ABD PEL W/O Oral W/O IV Contrast: (TAJ: 08/28/2019 23:13) ( MsgRcvd 08/29/2019 01:11)Final results Exam CT ABD //T// PELV W/O ORAL W/[place] [address] ---------NAME--------- NUMBER SEX AGE ADMIT DISC. XRAY# F/C TYPE MARLEY ROWE [id number] F 58 08/28/19 [id number] LBA E/R DATE OF : 1960 M/R# [id number] #: RM [id number] LOCATION: EMERGENCY DEPT TRANSCRIBED: 08/29/[address] ABD //T// PELV W/O ORAL W/[place] [id number] COMPLETED:08/29/19 54 kinsey [id number] Reason(s): Abdominal Pain PHYSICIAN: TAWANNA ESPINOSA R A D I O L O G Y R E P O R T PATIENT HISTORY: ACTUAL DOSE 1080.6 mGy*cm syncope short of breath abdominal pain Patient hx menopause.Verification of 2 patient identifiers performed. Time Out performed. correct body part and side all verified prior to examination. Exam has been sent to [facility] - If further information is needed, the number is . Report will be faxed to ED and/or Xray. / LUNG (DICOM Hx) CT ABDOMEN AND PELVIS WITHOUT CONTRAST COMPARISON: None HISTORY: ACTUAL DOSE 1080.6 mGy*cm syncope short of breath abdominal pain Patient hx menopause.Verification of 2 patient identifiers performed. Time Out performed. correct body part and side all verified prior to examination. Exam has been sent to [facility] - If further information is needed, the number is . Report will be faxed to ED and/or Xray. TECHNIQUE: CT images through the abdomen and pelvis obtained without intravenous contrast. FINDINGS: Chest findings described separately. Abdomen: Liver, spleen and adrenals unremarkable. There is mild edema with small lymph nodes seen in the mesentery. The gallbladder is unremarkable. No hydronephrosis or urinary stone. Pelvis: Normal caliber appendix. No bowel obstruction. Post hysterectomy. No free fluid or free air. 5 Clinical Report - Physicians/Mid Levels [facility] Emergency Department [address] [place] [address] Phone #: ext- [phone] 08/28/2019 21:38 Patient: JAE LIMA Sex: F : 1960 Age: 58y No acute bony abnormality. IMPRESSIONS: Mild mesenteric edema and small lymph nodes, may represent reactive changes due to enteritis, pancreatitis, or other infectious/inflammatory process. A followup study may be reasonable to confirm resolution and exclude mesenteric panniculitis or early lymphoma which could have similar radiographic appearance. Post hysterectomy. While performing the above CT examination, radiation dose reduction was accomplished utilizing automated exposure control, adjusting of the mA and kV based on the patient's body size and/or the use of imperative reconstructive techniques. Electronically Signed By: Chad Gracia M.D. , Radiologist Date/Time: 08/29/19 00:53Urinalysis: (TAJ: 08/28/2019 23:20) ( MsgRcvd 08/29/2019 00:21) Correction to results Test Result Flag Units (Reference) URINALYSIS URINALYSIS SOURCE Clean Catch COLOR yellow (NORMAL: Yello CLARITY clear (NORMAL: Clear SPEC GRAVITY 1.020 (1.001 - 1.030 pH 6 (5 - 9) GLUCOSE NORM (NORMAL: Negat BILIRUBIN 1 (NORMAL: Negat KETONE NEG (NORMAL: Negat PROTEIN 30 (NORMAL: Negat NITRITE NEG (NORMAL: Negat BLOOD 10 A (NORMAL: Negat LEUK EST 25 (NORMAL: Negat UROBILINOGEN 1 (less than 1.0 MICROSCOPIC See Below WBC 1 - 3 (NORMAL: NONE RBC 0 - 1 (NORMAL: NONE EPITHELIAL FEW (NORMAL: NONE BACTERIA Trace (NORMAL: NONE MUCOUS Trace (NORMAL: NONEBNP: (TAJ: 08/28/2019 22:04) ( MsgRcvd 08/28/2019 22:59) Final results Test Result Flag Units (Reference) BNP 168 H PG/ML (0 - 125)CBC w Diff: (TAJ: 08/28/2019 22:04) ( MsgRcvd 08/28/2019 22:29) Final results Test Result Flag Units (Reference) CBC W/AUTOMATED DIFF COMPLETE BLOOD COUNT WBC 7.7 10/uL (4.2 - 11.0) RBC 4.87 10/uL (4.20 - 5.40) HEMOGLOBIN 14.9 g/dL (12.0 - 16.0) HEMATOCRIT 43.8 % (37.0 - 47.0) MCV 89.9 fL (81.0 - 101) MCH 30.6 pg (27.0 - 34.0) MCHC 34.0 g/dL (31.0 - 36.0) RDW 13.2 % (11.5 - 14.5) PLATELETS 240 10/uL (150 - 450) MPV 8.9 fL (7.4 - 10.4) 6 Clinical Report - Physicians/Mid Levels [facility] Emergency Department [address] [place] [address] Phone #: ext- [phone] 08/28/2019 21:38 Patient: JAE LIMA Sex: F : 1960 Age: 58y NEUT 87.1 H % (37.0 - 80.0) LYMPH 7.0 L % (25.0 - 40.0) MONO 4.9 % (3.0 - 8.0) EOS 0.4 % (0.0 - 7.0) BASO 0.3 % (0.0 - 2.5) %IG 0.3 H % (0.0 - 0.0) %NRBC 0.0 % (0.0 - 0.0) #NEUT 6.71 10/uL (2.00 - 6.90) #LYMPH 0.54 L 10/uL (0.60 - 3.40) #MONO 0.38 10/uL (0.00 - 0.90) #EOS 0.03 10/uL (0.00 - 0.70) #BASO 0.02 10/uL (0.00 - 0.20) #IG 0.02 10/uL (0.00 - 0.10) #NRBC 0.00 10/uL (0.00 - 0.00) MANUAL DIFF NOT INDICATED RBC MORPH NOT INDICATEDCMP: (TAJ: 08/28/2019 22:04) ( MsgRcvd 08/28/2019 22:59) Final results Test Result Flag Units (Reference) COMPREHENSIVE METABOLIC PANEL COMPREHENSIVE METABOLIC PANEL SODIUM 139 mEq/L (134 - 153) POTASSIUM 3.7 mEq/L (3.6 - 5.0) CHLORIDE 98 mEq/L (98 - 107) CO2 29 MEQ/L (22 - 30) GLUCOSE 147 H MG/DL (65 - 110) BUN 18 MG/DL (7 - 21) CREATININE 0.7 MG/DL (0.7 - 1.5) BUN/CREAT 26 (8 - 27) TOTAL PROTEIN 7.1 G/DL (6.3 - 8.2) ALBUMIN 4.2 G/DL (3.9 - 5.0) GLOBULIN 2.9 GM/DL (2.4 - 3.2) A/G RATIO 1.4 (0.8 - 2.0) CALCIUM 9.3 MG/DL (8.4 - 10.2) TOTAL BILI <0.7 MG/DL (0.2 - 1.3) ALKALINE PHOS 104 U/L (38 - 126) SGOT/AST 21 U/L (5 - 40) SGPT/ALT 13 U/L (7 - 56) ANION GAP 12.0 mmol/L (8.0 - 16.0) AGE 58 yrs NON- AA GFR >60 mL/min AFR AMER GFR >60 mL/min Male GFR Interprentation 20-49 yrs >60 mL/min Atjazg21-53 yrs >56 mL/min Normal 60- 69 yrs >49 mL/min Normal 70-79yrs>42 mL/min Normal 80 and above >35 mL/min Normal Female GFRInterpretation 20-39 yrs >60 mL/min Normal 40-49 yrs >58 mL/minNormal 50-59 yrs >51 mL/min Normal 60-69 yrs >45 mL/min Fhvury13-89 yrs >39 mL/min Normal 80 and above >32 mL/min NormalCPK: (TAJ: 08/28/2019 22:04) ( MsgRcvd 08/28/2019 22:59) Final results Test Result Flag Units (Reference) CPK 59 U/L (30 - 170)D-Dimer: (TAJ: 08/28/2019 22:04) ( [facility] [place] Final results Test Result Flag Units (Reference) D-DIMER QUANT 0.96 H ug/mL (0.27 - 0.50)Lactic Acid: (TAJ: 08/28/2019 22:04) ( OhgRcvd 08/28/2019 22:59) Final results Test Result Flag Units (Reference) LACTIC ACID 2.4 H MMOL/L (0.2 - 2.2)Lipase: (TAJ: 08/28/2019 22:04) ( MsgRcvd 08/28/2019 22:59) Final results Test Result Flag Units (Reference) 7 Clinical Report - Physicians/Mid Levels [facility] Emergency Department [address] [place] [address] Phone #: ext- [phone] 08/28/2019 21:38 ----- Patient: JAE LIMA Sex: F : 1960 Age: 58y LIPASE 14 U/L (13 - 60) Rapid Strep Screen: (TAJ: 08/28/2019 22:08) ( MsgRcvd 08/28/2019 22:38) Final results Test Result Flag Units (Reference) RAPID STREP NEGATIVE (NORMAL: NEGAT RAPID STREP REENTER NEGATIVE (NORMAL: NEGAT { PROCEDURAL CONTROL VALID ){ KIT LOT # [id number] ){ KIT EXP DATE 08-13-20 )The Strep A 2 assay utilizes isothermal nucleic acid amplification technology fothe qualitative detection of Group A Strep bacterial nucleic acid in throat swabspecimens.All negative test results no longer need to be confirmed with a culture. Follow-up testing requiring a culture is necessary if clinical symptoms persist, or inthe event of an acute rheumatic fever outbreak. A culture will need to beordered by the Qualified Medical Provide r.Negative results do not preclude infection with Group A Strep and should not beused as the sole basis for treatment. Influenza Nasal A B: (TAJ: 08/28/2019 22:08) ( MsgRcvd 08/28/2019 22:40) Final results Test Result Flag Units (Reference) INFLUENZA A NEGATIVE (NORMAL: NEGAT INFLUENZA B NEGATIVE (NORMAL: NEGAT INFLUENZA A REENTER NEGATIVE (NORMAL: NEGAT INFLUENZA B REENTER NEGATIVE (NORMAL: NEGAT PROCEDURAL CONTROL VALID KIT LOT # _[id number] 08/28/19.DW . KIT EXP DATE _[id number] 08/28/19.DW .The Influenza A utilizing an isothermal nucleic acid amplification technology for thequalitative detection of influenza A and B viral RNA.Negative results do not preclude influenza virus infection and should not beused as the sole basis for diagnosis, treatment or other patient managementdecisions. . Note - Tests: (CT abdomen / pelvis - Mild mesenteric edema and small lymph nodes - non-specific finding. May be reactive changes d/t enteritis / pancreatitis / may need follow-up CT to re-assess.).PROGRESS AND PROCEDURESCourse of Care: Aug 29 2019. Patient is stable. Symptoms much better. Aug [address] scans and labs are unremarkable. Pt. feels much better and wants to go home. She is drinking without vomiting and able to sit up and stand without dizziness. Critical care performed (130 minutes). Time is exclusive of separately billable procedures. Time includes: direct patient care, patient reassessment, interpretation of data (laboratory data and pulse oximetry), review of patient's medical records and documentation of patient care- see progress notes. Procedures included in critical care time: phlebotomy- see progress notes. Disposition: Discharged home in good and improved condition (Aug 29 2019). Condition: good.CLINICAL IMPRESSION Vasovagal syncope. Contusion to the head and forehead. 8 Clinical Report - Physicians/Mid Levels [facility] Emergency Department [address] [place] [address] Phone #: ext- [phone] 08/28/2019 21:38 Patient: JAE LIMA Sex: F : 1960 Age: 58yINSTRUCTIONS Drink plenty of fluids. Warnings: Further evaluation is necessary. GENERAL WARNINGS: Return or contact your physician immediately if your condition worsens or changes unexpectedly, if not improving as expected, or if other problems arise. Prescription Medications: meclizine 25 mg tablet Take 1 tablet every eight hours as needed for 5 days -- for nausea / dizziness. Dispense 15 tablet. Refills: 0. Substitution permitted. Pharmacy - [id number] [address], [place] [id number]. . Follow-up: Follow up with your doctor today if not better. Call for an appointment. Reason for referral: evaluation, treatment and Syncope / Forehead contusion. Understanding of the discharge instructions verbalized by patient.(Electronically signed by Aman Stacy, Physician 08/29/2019 05:28) Name Value Range Interpretation Code Description Data Alice rce(s) Supporting Document(s) ID Date Data Source [id number] 08/29/2019 12:53:00 AM EDT [facility] [address] [facility] [place] [id number] ---------NAME--------- NUMBER SEX AGE ADMIT DISC. XRAY# F/C TYPE CLARENCE ROWE [id number] F 58 08/28/19 [id number] LBA E/R DATE OF : 1960 M/R# [id number] PH#: [id number] LOCATION: EMERGENCY DEPT TRANSCRIBED: 08/29/[address] ABD //T// PELV W/[place] OR[place] W/[place] [id number] COMPLETED:08/29/19 54 kinsey [id number] Reason(s): Abdominal Pain PHYSICIAN: TAWANNA BR======= R A D I O L O G Y R E P O R T PATIENT HISTORY:ACTUAL DOSE 1080.6 mGy*cm syncope short of breath abdominal painPatient hx menopause.Verification of 2 patient identifiers performed.Time Out performed. correct body part and side all verified prior toexamination. Exam has been sent to [facility] - If further informationis needed, the number is . Report will be faxed to ED and/or Xray./ LUNG (DICOM Hx)CT ABDOMEN AND PELVIS WITHOUT CONTRASTCOMPARISON: NoneHISTORY: ACTUAL DOSE 1080.6 mGy*cm syncope short of breath abdominal painPatient hx menopause.Verification of 2 patient identifiers performed. Time Outperformed. correct body part and side all verified prior to examination. Exam has been sent to [facility] - If further information isneeded, the number is . Report will be faxed to ED and/or Xray.TECHNIQUE:CT images through the abdomen and pelvis obtained without intravenous contrast.FINDINGS:Chest findings described separately.Abdomen: Liver, spleen and adrenals unremarkable. There is mild edema with smalllymph nodes seen in the mesentery. The gallbladder is unremarkable. Nohydronephrosis or urinary stone.Pelvis: Normal caliber appendix. No bowel obstruction. Post hysterectomy. Nofree fluid or free air.No acute bony abnormality.IMPRESSIONS:Mild mesenteric edema and small lymph nodes, may represent reactive changes dueto enteritis, pancreatitis, or other infectious/inflammatory process. A followupstudy may be reasonable to confirm resolution and exclude mesentericpanniculitis or early lymphoma which could have similar radiographic appearance.Post hysterecto my.While performing the above CT examination, radiation dose reduction wasaccomplished utilizing automated exposure control, adjusting of the mA and kVbased on the patient's body size and/or the use of imperative reconstructivetechniques.Electronically Signed By:Chad Gracia M.D. , RadiologistDate/Time: 08/29/19 00:53 Name Value Range Interpretation Code Description Data Alice rce(s) Supporting Document(s) ID Date Data Source [id number] 08/29/2019 12:41:00 AM EDT [facility] [address] [place] [address] ---------NAME--------- NUMBER SEX AGE ADMIT DISC. XRAY# F/C TYPE CLARENCE ROWE [id number] F 58 08/28/19 [id number] LBA E/R DATE OF : 1960 M/R# [id number] PH#: [id number] LOCATION: EMERGENCY DEPT TRANSCRIBED: 08/29/[address] THORAX W/O CONTRAST [id number] COMPLETED:08/29/19 43 kinsey [id number] Reason(s): Shortness of Breath PHYSICIAN: TAWANNA ESPINOSA====== R A D I O L O G Y R E P O R T =PATIENT HISTORY:ACTUAL DOSE 470.4 mGy*cm syncope short of breath abdominal painPatient hx menopause.Verification of 2 patient identifiers performed.Time Out performed. correct body part and side all verified prior toexamination. Exam has been sent to [facility] - If further informationis needed, the number is . Report will be faxed to ED and/or Xray./ CORONAL, iDose (3) (DICOM Hx)CT CHEST WITHOUT CONTRASTCOMPARISON: NoneHISTORY: ACTUAL DOSE 470.4 mGy*cm syncope short of breath abdominal pain Patienthx menopause.Verification of 2 patient identifiers performed. Time Outperformed. correct body part and side all verified prior to examination. Exam has been sent to [facility] - If further information isneeded, the number is . Report will be faxed to ED and/or Xray.TECHNIQUE:CT images through the chest obtained without intravenous contrast.FINDINGS:Heart size is normal.There is no focal consolidation, pneumothorax, or pleural effus ion.No mediastinal lymphadenopathy.Noncontrast study without direct assessment of vascular structures.Abdominal findings are described separately.IMPRESSIONS:Unremarkable noncontrast CT of the thorax.While performing the above CT examination, radiation dose reduction wasaccomplished utilizing automated exposure control, adjusting of the mA and kVbased on the patient's body size and/or the use of imperative reconstructivetechniques.Electronically Signed By:Chad Gracia M.D. , RadiologistDate/Time: 08/29/19 00:41 Name Value Range Interpretation Code Description Data Alice rce(s) Supporting Document(s) ID Date Data Source [id number] 08/29/2019 12:30:00 AM EDT [address] [place] [address] ---------NAME--------- NUMBER SEX AGE ADMIT DISC. XRAY# F/C TYPE CLARENCE ROWE [id number] F 58 08/28/19 [id number] LBA E/R DATE OF : 1960 M/R# [id number] PH#: [id number] LOCATION: EMERGENCY DEPT TRANSCRIBED: 08/29/[address] HEAD W/O CONTRAST [id number] COMPLETED:08/29/19 31 kinsey [id number] Reason(s): Syncope PHYSICIAN: TAWANNA BR R A D I O L O G Y R E P O R T PATIENT HISTORY:ACTUAL DOSE 853.8 mGy*cm syncope short of breath abdominal painPatient hx menopause.Verification of 2 patient identifiers performed.Time Out performed. correct body part and side all verified prior toexamination. Exam has been sent to [facility] - If further informationis needed, the number is . Report will be faxed to ED and/or Xray./ BRAIN (DICOM Hx)CT HEAD WITHOUT CONTRASTCOMPARISON: NoneHISTORY: ACTUAL DOSE 853.8 mGy*cm syncope short of breath abdominal pain Patienthx menopause.Verification of 2 patient identifiers performed. Time Outperformed. correct body part and side all verified prior to examination. Exam has been sent to [facility] - If further information isneeded, the number is . Report will be faxed to ED and/or Xray.TECHNIQUE:CT images through the head obtained without intravenous contrast.FINDINGS:There is no evidence of acute large vessel territory infarct, hemorrhage, ormass. Calvarium appears intact. Orbits, paranasal sinuses, mastoid air cells areunremarkable.IMPRESSIONS:No acute intracranial abnormality.While performing the above CT examination, radiation dose reduction wasaccomplished utilizing au tomated exposure control, adjusting of the mA and kVbased on the patient's body size and/or the use of imperative reconstructivetechniques.Electronically Signed By:Chad Gracia M.D. , RadiologistDate/Time: 08/29/19 00:30 Name Value Range Interpretation Code Description Data Alice rce(s) Supporting Document(s) ID Date Data Source [id number] 08/29/2019 12:20:[address] [facility] Name Value Range Interpretation Code Description Data Alice rce(s) Supporting Document(s) URINALYSIS [facility] URINALYSIS SOURCE Clean Catch [facility] COLOR yellow NORMAL: Yellow [facility] CLARITY clear NORMAL: Clear [facility] Specific gravity of Urine by Test strip 1.020 1.001 - 1.030 [facility] 6 5 - 9 [facility] Gl[facility] [Mass/volume] in Urine by Test strip NORM NORMAL: Negat obed [facility] Bilirubin.total [Presence] in Urine by Test strip 1 NORMAL: Negative [facility] Ketones [Presence] in Urine by Test strip NEG NORMAL: Negative [facility] Protein [Mass/volume] in Urine by Test strip 30 NORMAL: Negat obed [facility] Nitrite [Presence] in Urine by Test strip NEG NORMAL: Negative [facility] BLOOD 10 NORMAL: Negative A [facility] Leukocyte esterase [Presence] in Urine by Test strip 25 LEVI L: Negative [facility] Urobilinogen [Mass/volume] in Urine by Test strip 1 less alexys n 1.0 mg/dL [facility] MICROSCOPIC See Below [facility] WBC 1 - 3 NORMAL: NONE SEEN [facility] Erythrocytes [#/volume] in Urine by Test strip 0 - 1 NORMAL: NON E SEEN [facility] EPITHELIAL FEW NORMAL: NONE SEEN [facility] Bacteria [Presence] in Urine sediment by Light microscopy Tr hammad NORMAL: NONE SEEN [facility] Mucus [Presence] in Urine sediment by Light microscopy Trace NORMAL: NONE SEEN [facility] ID Date Data Source [id number] 08/29/2019 12:56:00 AM EDT [facility] THIS TESTS FOR HUMAN CORONAVIRUS NOT COVID-19FilmArray Respiratory Panel is a Multiplexed NAAT-PCR testNORMAL VALUE FOR ALL 20 PATHOGENS IS "NOT DETECTED".The FilmArray RP panel detects Influenza A H1,H3 qfy0511 H1 viruses,Influenza B virus, Respiratory syncytialvirus, Human metapneumovirus,Parainfluenza virus 1,2,3, and4, Adenovirus,Rhino/Enterovirus,Coronavirus HKU 1, Nl63,OC43, and 229E,Bordetella pertussis, Bordetellaparapertussis, Mycoplasma pneumoniae and Chlamydiapneumoniae.THIS TEST HAS NOT BEEN EVALUATED FOR USE WITH SPECIMENSOTHER THAN NASOPHARYNGEAL SWAB SPECIMENS.THE PERFORMANCE OF THIS TEST HAS NOT BEEN ESTABLISHED FORPATIENTS WITHOUT SIGNS AND SYMPTOMS OF RESPIRATORYINFECTION.RESULTS FROM THIS TEST MUST BE CORRELATED WITH CLINICALHISTORY, EPIDEMIOLOGICAL DATA , AND OTHER DATA AVAILABLE TOTHE CLINICIAN EVALUATING THE PATIENT.THE PERFORMANCE OF THE FilmARRAY RP HAS NOT BEEN ESTABLISHEDIN INDIVIDUALS WHO RECEIVED INFLUENZA VACCINE. RECENTADMINISTRATION OF A NASAL INFLUENZA VACCINE MAY CAUSE AFALSE POSITIVE RESULT FOR INFLUENZA A AND/OR B.NEGATIVE RESULTS SHOULD NOT BE USED THE SOLE BASIS FORDIAGNOSIS, TREATMENT, OR OTHER MANAGEMENT DECISIONS.NEGATIVE RESULTS IN THE SETTING OF A RESPIRATORY ILLNESSMAYBE DUE TO INFECTION WITH PATHOGENS THAT ARE NOT DETECTEDBY THIS TEST OR LOWER RESPIRATORY TRACT INFECTION THAT ISNOT DETECTED BY A NASOPHARYNGEAL SWAB SPECIMEN.No Organisms Detected Name Value Range Interpretation Code Description Data Alice rce(s) Supporting Document(s) ID Date Data Source [id number] 08/29/2019 11:17:[address] [facility] Name Value Range Interpretation Code Description Data Alice rce(s) Supporting Document(s) FLU PANEL [facility] _RESPIRATORY PANEL, FLU4_ [place] [address] CLIA# [id number] SEE SCANNED REPORT ID Date Data Source [id number] 08/28/2019 10:39:[address] [facility] Name Value Range Interpretation Code Description Data Alice rce(s) Supporting Document(s) Influenza virus A Ag [Presence] in Nasopharynx by Immunoassa y NEGATIVE NORMAL: NEGATIVE [facility] Influenza virus B Ag [Presence] in Nasopharynx by Immunoassa y NEGATIVE NORMAL: NEGATIVE [facility] NEGATIVENEGATIVE PROCEDURAL CO NTROL VALID KIT LOT # _[id number] 08/28/19.2238.DW . KIT EXP DATE _[id number] 08/28/19.DW .The Influenza A & B assay is a rapid molecular in vitro diagnostic testutilizing an isothermal nucleic acid amplification technology for thequalitative detection of influenza A and B viral RNA.Negative results do not preclude influenza virus infection and should not beused as the sole basis for diagnosis, treatment or other patient managementdecisions. ID Date Data Source [id number] 08/28/2019 10:38:[address] [facility] Name Value Range Interpretation Code Description Data Alice rce(s) Supporting Document(s) RAPID STREP NEGATIVE NORMAL: NEGATIVE [facility] RAPID STREP REENTER NEGATIVE NORMAL: NEGATIVE [facility] { PROCEDURAL CONTROL VALID ){ KIT LOT # [id number] ){ KIT EXP DATE 08-13-20 )The Strep A 2 assay utilizes isothermal nucleic acid amplification technology fothe qualitative detection of Group A Strep bacterial nucleic acid in throat swabspecimens.All negative test results no longer need to be confirmed with a culture. Follow-up testing requiring a culture is necessary if clinical symptoms persist, or inthe event of an acute rheumatic fever outbreak. A culture will need to beordered by the Qualified Medical Provider.Negative results do not preclude infection with Group A Strep and should not beused as the sole basis for treatment. ID Date Data Source [id number] 08/28/2019 11:04:[address] [facility] Name Value Range Interpretation Code Description Data Alice rce(s) Supporting Document(s) Fibrin D-dimer FEU [Mass/volume] in Platelet poor plasma 0.96 ug /mL 0.27 - 0.[address] [facility] ID Date Data Source [id number] 08/28/2019 10:59:[address] [facility] Name Value Range Interpretation Code Description Data Alice rce(s) Supporting Document(s) Lactate [Moles/volume] in Serum or Plasma 2.4 MMOL/L 0.2 - 2.[address] [facility] ID Date Data Source [id number] 08/28/2019 10:59:[address] [facility] Name Value Range Interpretation Code Description Data Alice rce(s) Supporting Document(s) COMPREHENSIVE METABOLIC PANEL [facility] COMPREHENSIVE METABOLIC PANEL Sodium [Moles/volume] in Serum or Plasma 139 mEq/L 134 - 153 [facility] Potassium [Moles/volume] in Serum or Plasma 3.7 mEq/L 3.6 - 5.0 [facility] Chloride [Moles/volume] in Serum or Plasma 98 mEq/L 98 - 107 [facility] Carbon dioxide, total [Moles/volume] in Serum or Plasma 29 MEQ/L 22 - 30 [facility] Glucose [Mass/volume] in Serum or Plasma 147 MG/DL 65 - [address] [facility] BUN 18 MG/DL 7 - 21 [facility] Creatinine [Mass/volume] in Serum or Plasma 0.7 MG/DL 0.7 - 1.5 [facility] BUN/CREAT 26 8 - 27 [facility] Protein [Mass/volume] in Serum or Plasma 7.1 G/DL 6.3 - 8.2 [facility] Albumin [Mass/volume] in Serum or Plasma 4.2 G/DL 3.9 - 5.0 [facility] Globulin [Mass/volume] in Serum by calculation 2.9 GM/DL 2.4 - 3.2 [facility] A/G RATIO 1.4 0.8 - 2.0 [facility] Calcium [Mass/volume] in Serum or Plasma 9.3 MG/DL 8.4 - 10.2 [facility] Bilirubin.total [Mass/volume] in Serum or Plasma <0.7 MG/DL 0.2 - 1.3 [facility] Alkaline phosphatase [Enzymatic activity/volume] in Serum or Plasma 104 U/L 38 - 126 [facility] Aspartate aminotransferase [Enzymatic activity/volume] in Serum or Plasma 21 U/L 5 - 40 [facility] Alanine aminotransferase [Enzymatic activity/volume] in Seru m or Plasma 13 U/L 7 - 56 [facility] Anion gap 3 in Serum or Plasma 12.0 mmol/L 8.0 - 16.0 [facility] AGE [address] [facility] NON-AA GFR >60 mL/min [facility] ital AFR AMER GFR >60 mL/min [facility] Male GFR In terprentation 20-49 yrs >60 mL/min Normal 50-59 yrs >56 mL/min Normal 60-69 yrs >49 mL/min Normal 70-79yrs >42 mL/min Normal 80 and above >35 mL/min Normal Female GFR Interpretation 20-39 yrs >60 mL/min Normal 40-49 yrs >58 mL/min Normal 50-59 yrs >51 mL/min Normal 60-69 yrs >45 mL/min Normal 70-79 yrs >39 mL/min Normal 80 and above >32 mL/min Normal ID Date Data Source [id number] 08/28/2019 10:59:[address] [facility] Name Value Range Interpretation Code Description Data Alice rce(s) Supporting Document(s) BNP 168 PG/ML 0 - [address] [facility] ID Date Data Source [id number] 08/28/2019 10:59:[address] [facility] Name Value Range Interpretation Code Description Data Alice rce(s) Supporting Document(s) Lipase [Enzymatic activity/volume] in Serum or Plasma 14 U/L 13 - 60 [facility] ID Date Data Source [id number] 08/28/2019 10:59:[address] [facility] Name Value Range Interpretation Code Description Data Alice rce(s) Supporting Document(s) Creatine kinase [Enzymatic activity/volume] in Serum or Plasma 5 9 U/L 30 - 170 [facility] ID Date Data Source [id number] 08/28/2019 10:26:[address] [facility] Name Value Range Interpretation Code Description Data Alice rce(s) Supporting Document(s) CBC W/AUTOMATED DIFF [facility] COMPLETE BLOOD COUNT Leukocytes [#/volume] in Blood by Automated count 7.7 10^3/uL 4.2 - [address] [facility] Erythrocytes [#/volume] in Blood by Automated count 4.87 10^6/uL 4. 20 - 5.40 [facility] Hemoglobin [Mass/volume] in Blood 14.9 g/dL 12.0 - 16.0 [facility] Hematocrit [Volume Fraction] of Blood by Automated count 43.8 % 3 7.0 - 47.0 [facility] Erythrocyte mean corpuscular volume [Entitic volume] by Auto mated count 89.9 fL 81.0 - 101 [facility] Erythrocyte mean corpuscular hemoglobin [Entitic mass] by Automated count 30.6 pg 27.0 - 34.0 [facility] Erythrocyte mean corpuscular hemoglobin concentration [Mass/volume] by Automated count 34.0 g/dL 31.0 - 36.0 [facility] Erythrocyte distribution width [Ratio] by Automated count 13.2 % 11.5 - 14.5 [facility] Platelets [#/volume] in Blood by Automated count 240 10^3/uL 150 - [address] [facility] Platelet mean volume [Entitic volume] in Blood by Automated count 8.9 fL 7.4 - 10.4 [facility] Neutrophils/100 leukocytes in Blood by Automated count 87.1 % 37. 0 - 80.[address] [facility] Lymphocytes/100 leukocytes in Blood by Manual count 7.0 % 25.0 - 40.[address] [facility] Monocytes/100 leukocytes in Blood by Automated count 4.9 % 3.0 - 8.0 [facility] Eosinophils/100 leukocytes in Blood by Automated count 0.4 % 0.0 - 7.0 [facility] Basophils/100 leukocytes in Blood by Automated count 0.3 % 0.0 - 2.5 [facility] %IG 0.3 % 0.0 - 0.0 H [facility] %NRBC 0.0 % 0.0 - 0.0 [facility] Neutrophils [#/volume] in Blood by Automated count 6.71 10^3/uL 2.00 - 6.90 [facility] Lymphocytes [#/volume] in Blood by Automated count 0.54 10^3/uL 0.60 - 3.[address] [facility] Monocytes [#/volume] in Blood by Automated count 0.38 10^3/uL 0.00 - 0.90 [facility] Eosinophils [#/volume] in Blood by Automated count 0.03 10^3/uL 0.00 - 0.70 [facility] Basophils [#/volume] in Blood by Automated count 0.02 10^3/uL 0.00 - 0.20 [facility] #IG 0.02 10^3/uL 0.00 - 0.10 [facility] #NRBC 0.00 10^3/uL 0.00 - 0.00 [facility] MANUAL DIFF NOT INDICATED [facility] RBC MORPH NOT INDICATED [facility] Procedure
[2020-07-23 19:46] LABS: HEMATOCRIT 42.3 % (36.0-47.0); HEMOGLOBIN 13.6 g/dl (12.0-15.5); MEAN CORPUSCULAR HEMOGLOBIN 29.8 pg (27.0-33.0); MEAN CORPUSCULAR HGB CONC 32.2 g/dl (32.0-36.5); MEAN CORPUSCULAR VOLUME 92.6 fl (80.0-96.0); PLATELET COUNT, AUTOMATED 255 10^3/uL (150-450); RED BLOOD COUNT 4.57 10^6/uL (4.00-5.40); WHITE BLOOD COUNT 8.4 10^3/uL (4.0-10.0)
[2020-07-23 20:08] LABS: AMPHETAMINES LEVEL URINE NEGATIVE (NEGATIVE); BARBITURATES URINE NEGATIVE (NEGATIVE); BENZODIAZEPINES URINE NEGATIVE (NEGATIVE); CANNABINOIDS URINE POSITIVE (NEGATIVE); COCAINE METABOLITE URINE NEGATIVE (NEGATIVE); METHADONE URINE NEGATIVE (NEGATIVE); OPIATES URINE NEGATIVE (NEGATIVE); PHENCYCLIDINE URINE NEGATIVE (NEGATIVE)
[2020-07-23 20:17] LABS: ACETAMINOPHEN LEVEL 8.5 UG/ML (10.0-30.0); ALBUMIN 3.4 GM/DL (3.2-5.2); ALT/SGPT 14 U/L (12-78); BILIRUBIN,DIRECT 0.1 MG/DL (0.0-0.2); BILIRUBIN,TOTAL 0.3 MG/DL (0.2-1.0); BLOOD UREA NITROGEN 14 MG/DL (7-18); CALCIUM LEVEL 9.4 MG/DL (8.5-10.1); CARBON DIOXIDE LEVEL 33 MEQ/L (21-32); CHLORIDE LEVEL 103 MEQ/L (98-107); CREATININE FOR GFR 0.78 MG/DL (0.55-1.30); ETHYL ALCOHOL (ETHANOL) < 0.003 % (0.000-0.010); GLOMERULAR FILTRATION RATE > 60.0 (>51); GLUCOSE, FASTING 97 MG/DL (70-100); POTASSIUM SERUM 3.8 MEQ/L (3.5-5.1); SALICYLATE LEVEL < 1.7 MG/DL (5.0-30.0); SODIUM LEVEL 141 MEQ/L (136-145); THYROID STIMULATING HORMONE 0.788 uIU/ML (0.358-3.740); TOTAL PROTEIN 7.5 GM/DL (6.4-8.2)
--- OUTSIDE RECORDS SUMMARY | 2020-07-23 21:49 | CCD ---
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 breath abdominal painPatient hx menopause.Verification of 2 patient identifiers performed.Time Out performed. correct body part and side all verified prior toexamination. Exam has been sent to [facility] Radiology - If further informationis needed, the number is . Report will be faxed to ED and/or Xray./ LUNG (DICOM Hx)CT ABDOMEN AND PELVIS WITHOUT CONTRASTCOMPARISON: NoneHISTORY: ACTUAL DOSE 1080.6 mGy*cm syncope short of breath abdominal painPatient hx menopause.Verification of 2 patient identifiers performed. Time Outperformed. correct body part and side all verified prior to examination. Exam has been sent to [facility] - If further information isneeded, the [...] rce(s) Supporting Document(s) ID Date Data Source [id number] 08/29/2019 12:41:00 AM EDT [facility] [address] [place] [address] ---------NAME--------- NUMBER SEX AGE ADMIT DISC. XRAY# F/C TYPE CLARENCE ROWE [id number] F 58 08/28/19 [id number] LBA E/R DATE OF : 1960 M/R# [id number] PH#: [id number] LOCATION: EMERGENCY DEPT TRANSCRIBED: 08/29/[address] THORAX W/O CONTRAST [id number] COMPLETED:08/29/19 43 kinsey [id number] Reason(s): Shortness of Breath PHYSICIAN: TAWANNA ESPINOSA====== R A D I O L O G Y R E P O R T =PATIENT HISTORY:ACTUAL DOSE 470.4 mGy*cm syncope short of breath abdominal painPatient hx menopause.Verification of 2 patient identifiers performed.Time Out performed. correct body part and side all verified prior toexamination. Exam has been sent to [facility] - If further informationis needed, the number is . Report will be faxed to ED and/or Xray./ CORONAL, iDose (3) (DICOM Hx)CT CHEST WITHOUT CONTRASTCOMPARISON: NoneHISTORY: ACTUAL DOSE 470.4 mGy*cm syncope short of breath abdominal pain Patienthx menopause.Verification of 2 patient identifiers performed. Time Outperformed. correct body part and side all verified prior to examination. Exam has been sent to [facility] - If further information isneeded, the [...] rce(s) Supporting Document(s) ID Date Data Source [id number] 08/29/2019 12:30:00 AM EDT [address] [place] [address] ---------NAME--------- NUMBER SEX AGE ADMIT DISC. XRAY# F/C TYPE CLARENCE ROWE [id number] F 58 08/28/19 [id number] LBA E/R DATE OF : 1960 M/R# [id number] PH#: [id number] LOCATION: EMERGENCY DEPT TRANSCRIBED: 08/29/[address] HEAD W/O CONTRAST 48416 COMPLETED:08/29/19 31 kinsey [id number] Reason(s): Syncope PHYSICIAN: TAWANNA BR R A D I O L O G Y R E P O R T PATIENT HISTORY:ACTUAL DOSE 853.8 mGy*cm syncope short of breath abdominal painPatient hx menopause.Verification of 2 patient identifiers performed.Time Out performed. correct body part and side all verified prior toexamination. Exam has been sent to [facility] [employer] [facility] Radiology - If further informationis needed, the number is . Report will be faxed to ED and/or Xray./ BRAIN (DICOM Hx)CT HEAD WITHOUT CONTRASTCOMPARISON: NoneHISTORY: ACTUAL DOSE 853.8 mGy*cm syncope short of breath abdominal pain Patienthx menopause.Verification of 2 patient identifiers performed. Time Outperformed. correct body part and side all verified prior to examination. Exam has been sent to [facility] Radiology - If further information isneeded, the [...] rce(s) Supporting Document(s) ID Date Data Source [id number] 08/29/2019 12:20:00 AM EDT [facility] Name Value Range Interpretation Code Description Data Alice rce(s) Supporting Document(s) URINALYSIS [facility] URINALYSIS SOURCE Clean Catch [facility] COLOR yellow NORMAL: Yellow [facility] CLARITY clear NORMAL: Clear [facility] Specific gravity of Urine by Test strip 1.020 1.001 - 1.030 [facility] 6 5 - 9 [facility] Glucose [Mass/volume] in Urine by Test strip NORM NORMAL: Negat obed [facility] Bilirubin.total [Presence] in Urine by Test strip 1 NORMAL: Negative [facility] Ketones [Presence] in Urine by Test strip NEG NORMAL: Negative [facility] Protein [Mass/volume] in Urine by Test strip 30 NORMAL: Negat obed [facility] Nitrite [Presence] in Urine by Test strip NEG NORMAL: Negative [facility] BLOOD 10 NORMAL: Negative A [facility] Leukocyte esterase [Presence] in Urine by Test strip 25 LEVI L: Negative [facility] Urobilinogen [Mass/volume] in Urine by Test strip 1 less alexys n 1.0 mg/dL [facility] MICROSCOPIC See Below [facility] WBC 1 - 3 NORMAL: NONE SEEN [facility] Erythrocytes [#/volume] in Urine by Test strip 0 - 1 NORMAL: NON E SEEN [facility] EPITHELIAL FEW NORMAL: NONE SEEN [facility] Bacteria [Presence] in Urine sediment by Light microscopy Tr hammad NORMAL: NONE SEEN [facility] Mucus [Presence] in Urine sediment by Light microscopy Trace NORMAL: NONE SEEN [facility] ID Date Data Source [id number] 08/29/2019 12:56:00 AM EDT [facility] THIS TESTS FOR HUMAN CORONAVIRUS NOT COVID-19FilmArray Respiratory Panel is a Multiplexed NAAT-PCR testNORMAL VALUE FOR ALL 20 PATHOGENS IS "NOT DETECTED".The [employer] RP panel detects Influenza A H1,H3 dli1693 H1 viruses,Influenza B virus, Respiratory syncytialvirus, Human [...] rce(s) Supporting Document(s) ID Date Data Source [id number] 08/29/2019 11:17:00 AM EDT [facility] Name Value Range Interpretation Code Description Data Alice rce(s) Supporting Document(s) FLU PANEL [facility] _RESPIRATORY PANEL, FLU4_ [place] [address] CLIA# [id number] SEE SCANNED REPORT ID Date Data Source [id number] 08/28/2019 10:39:00 PM EDT [facility] Name Value Range Interpretation Code Description Data Alice rce(s) Supporting Document(s) Influenza virus A Ag [Presence] in Nasopharynx by Immunoassa y NEGATIVE NORMAL: NEGATIVE [facility] Influenza virus B Ag [Presence] in Nasopharynx by Immunoassa y NEGATIVE NORMAL: NEGATIVE [facility] NEGATIVENEGATIVE PROCEDURAL CO NTROL VALID KIT LOT # _[id number] 08/28/19.2238.DW . KIT EXP DATE _79-63-44 08/28/19.DW .The Influenza A & B assay is a rapid molecular in vitro diagnostic testutilizing an isothermal nucleic acid amplification technology for thequalitative detection of influenza A and B viral RNA.Negative results do not preclude influenza virus infection and should not beused as the sole basis for diagnosis, treatment or other patient managementdecisions. ID Date Data Source [id number] 08/28/2019 10:38:00 PM EDT [facility] Name Value Range Interpretation Code Description Data Alice rce(s) Supporting Document(s) RAPID STREP NEGATIVE NORMAL: NEGATIVE [facility] RAPID STREP REENTER NEGATIVE NORMAL: NEGATIVE [facility] { PROCEDURAL CONTROL VALID ){ KIT LOT # [id number] ){ KIT EXP DATE 08-13-20 )The Strep [...] basis for treatment. ID Date Data Source [id number] 08/28/2019 11:04:00 PM EDT [facility] Name Value Range Interpretation Code Description Data Alice rce(s) Supporting Document(s) Fibrin D-dimer FEU [Mass/volume] in Platelet poor plasma 0.96 ug /mL 0.27 - 0.50 H [facility] ID Date Data Source [id number] 08/28/2019 10:59:00 PM EDT [facility] Name Value Range Interpretation Code Description Data Alice rce(s) Supporting Document(s) Lactate [Moles/volume] in Serum or Plasma 2.4 MMOL/L 0.2 - 2.2 H [facility] ID Date Data Source [id number] 08/28/2019 10:59:00 PM T [facility] Name Value Range Interpretation Code Description Data Alice rce(s) Supporting Document(s) COMPREHENSIVE METABOLIC PANEL [facility] COMPREHENSIVE METABOLIC PANEL Sodium [Moles/volume] in Serum or Plasma 139 mEq/L 134 - 153 [facility] Potassium [Moles/volume] in Serum or Plasma 3.7 mEq/L 3.6 - 5.0 [facility] Chloride [Moles/volume] in Serum or Plasma 98 mEq/L 98 - 107 [facility] Carbon dioxide, total [Moles/volume] in Serum or Plasma 29 MEQ/L 22 - 30 [facility] Glucose [Mass/volume] in Serum or Plasma 147 MG/DL 65 - 110 H [facility] BUN 18 MG/DL 7 - 21 [facility] Creatinine [Mass/volume] in Serum or Plasma 0.7 MG/DL 0.7 - 1.5 [facility] BUN/CREAT 26 8 - 27 [facility] Protein [Mass/volume] in Serum or Plasma 7.1 G/DL 6.3 - 8.2 [facility] Albumin [Mass/volume] in Serum or Plasma 4.2 G/DL 3.9 - 5.0 [facility] Globulin [Mass/volume] in Serum by calculation 2.9 GM/DL 2.4 - 3.2 [facility] A/G RATIO 1.4 0.8 - 2.0 [facility] Calcium [Mass/volume] in Serum or Plasma 9.3 MG/DL 8.4 - 10.2 [facility] Bilirubin.total [Mass/volume] in Serum or Plasma <0.7 MG/DL 0.2 - 1.3 [facility] Alkaline phosphatase [Enzymatic activity/volume] in Serum or Plasma 104 U/L 38 - 126 [facility] Aspartate aminotransferase [Enzymatic activity/volume] in Serum or Plasma 21 U/L 5 - 40 [facility] Alanine aminotransferase [Enzymatic activity/volume] in Seru m or Plasma 13 U/L 7 - 56 [facility] Anion gap 3 in Serum or Plasma 12.0 mmol/L 8.0 - 16.0 [facility] AGE 58 yrs [facility] NON-AA GFR >60 mL/min [facility] ital AFR AMER GFR >60 mL/min [facility] Male GFR In terprentation 20-49 [...] >32 mL/min Normal ID Date Data Source [id number] 08/28/2019 10:59:00 PM EDT [facility] Name Value Range Interpretation Code Description Data Alice rce(s) Supporting Document(s) BNP 168 PG/ML 0 - 125 H [facility] ID Date Data Source [id number] 08/28/2019 10:59:00 PM EDT [facility] Name Value Range Interpretation Code Description Data Alice rce(s) Supporting Document(s) Lipase [Enzymatic activity/volume] in Serum or Plasma 14 U/L 13 - 60 [facility] ID Date Data Source [id number] 08/28/2019 10:59:00 PM EDT [facility] Name Value Range Interpretation Code Description Data Alice rce(s) Supporting Document(s) Creatine kinase [Enzymatic activity/volume] in Serum or Plasma 5 9 U/L 30 - 170 [facility] ID Date Data Source [id number] 08/28/2019 10:26:00 PM EDT [facility] Name Value Range Interpretation Code Description Data Alice rce(s) Supporting Document(s) CBC W/AUTOMATED DIFF [facility] COMPLETE BLOOD COUNT Leukocytes [#/volume] in Blood by Automated count 7.7 10^3/uL 4.2 - 1 1.0 [facility] Erythrocytes [#/volume] in Blood by Automated count 4.87 10^6/uL 4. 20 - 5.40 [facility] Hemoglobin [Mass/volume] in Blood 14.9 g/dL 12.0 - 16.0 [facility] Hematocrit [Volume Fraction] of Blood by Automated count 43.8 % 3 7.0 - 47.0 [facility] Erythrocyte mean corpuscular volume [Entitic volume] by Auto mated count 89.9 fL 81.0 - 101 [facility] Erythrocyte mean corpuscular hemoglobin [Entitic mass] by Automated count 30.6 pg 27.0 - 34.0 [facility] Erythrocyte mean corpuscular hemoglobin concentration [Mass/volume] by Automated count 34.0 g/dL 31.0 - 36.0 [facility] Erythrocyte distribution width [Ratio] by Automated count 13.2 % 11.5 - 14.5 [facility] Platelets [#/volume] in Blood by Automated count 240 10^3/uL 150 - 45 0 [facility] Platelet mean volume [Entitic volume] in Blood by Automated count 8.9 fL 7.4 - 10.4 [facility] Neutrophils/100 leukocytes in Blood by Automated count 87.1 % 37. 0 - 80.0 H [facility] Lymphocytes/100 leukocytes in Blood by Manual count 7.0 % 25.0 - 40.0 L [facility] Monocytes/100 leukocytes in Blood by Automated count 4.9 % 3.0 - 8.0 [facility] Eosinophils/100 leukocytes in Blood by Automated count 0.4 % 0.0 - 7.0 [facility] Basophils/100 leukocytes in Blood by Automated count 0.3 % 0.0 - 2.5 [facility] %IG 0.3 % 0.0 - 0.0 H [facility] %NRBC 0.0 % 0.0 - 0.0 [facility] Neutrophils [#/volume] in Blood by Automated count 6.71 10^3/uL 2.00 - 6.90 [facility] Lymphocytes [#/volume] in Blood by Automated count 0.54 10^3/uL 0.60 - 3.40 L [facility] Monocytes [#/volume] in Blood by Automated count 0.38 10^3/uL 0.00 - 0.90 [facility] Eosinophils [#/volume] in Blood by Automated count 0.03 10^3/uL 0.00 - 0.70 [facility] Basophils [#/volume] in Blood by Automated count 0.02 10^3/uL 0.00 - 0.20 [facility] #IG 0.02 10^3/uL 0.00 - 0.10 [facility] #NRBC 0.00 10^3/uL 0.00 - 0.00 [facility] MANUAL DIFF NOT INDICATED [facility] RBC MORPH NOT INDICATED [facility] Procedure
[2020-07-23 21:57] LABS: RSV AMPLIFICATION NEGATIVE (NEGATIVE)
[2020-07-23] MEDS ORDERED: ACETAMINOPHEN 325 MG TAB PO ONE (22:45)
[2020-07-23] MEDS ORDERED: DULO20CA27 PO (23:03)
[2020-07-23] MEDS ORDERED: MELA3TAB30 PO (23:03)
[2020-07-23] MEDS ORDERED: TRAZ-252 PO (23:03)
[2020-07-23] MEDS ORDERED: METO25TA4 PO (23:03)
[2020-07-23] MEDS ORDERED: LAMO150T3 PO (23:03)
[2020-07-24] MEDS ORDERED: lamoTRIgine 100MG TAB PO ONE (00:45)
[2020-07-24] MEDS ORDERED: METOPROLOL TART 25 MG TABLET PO ONE (00:45)
[2020-07-24] MEDS ORDERED: traZODone 50 MG TAB PO ONE (00:45)
[2020-07-24 00:55] VITALS: BP 131/88
[2020-07-24] MEDS ORDERED: METAL LOCK LOOP XX ONE (02:35)
--- NOTE | 2020-07-24 05:20 | ECGEPIP ---
[facility] - ED Test Date: 2020-07-23 Pat Name: JAE LIMA Department: Room: - Gender: Female [employer]: : 1960 Requested By: Jessica Houston Order Number: [id number] Reading MD: Jessica Houston Measurements Intervals [place] Rate: 71 P: 55 MI: 191 QRS: 54 QRSD: 110 T: 58 QT: 421 QTc: 459 Interpretive Statements SINUS RHYTHM IVCD NSTTW abnormalities ATRIAL ENLARGEMENT DECREASED RATE/SHORT QTC COMPARED 05/25/19 Electronically Signed on 07-24-2020 5:20:39 EST by Jessica Houston
[2020-07-24 08:22] VITALS: BP 141/88
== END 2020-07-24 08:22 ==
LOC: M ED 18:51
DX: R45.851 Suicidal ideations (principal); F31.9 Bipolar disorder, unspecified; I10 Essential (primary) hypertension

== ENCOUNTER → 2021-06-13 | Outpatient (CLI) | payer OTHER ==
[~2021-06-13] MED LIST changes: +DULO20CA27 PO; +LAMO150T3 PO; +MELA3TAB30 PO; +MELO15TA28 PO; +METO25TA4 PO; +POTA10CA32 PO; +TRAZ-252 PO
== END ==
LOC: M LABSMTC 11:25
PROVIDERS: ATTEND Anesthesiology
DX: Z01.818 Encounter for other preprocedural examination (principal); Z11.52 Encounter for screening for COVID-19

== ENCOUNTER 2023-07-04 16:50 | Emergency (ER) | payer OTHER ==
[~2023-07-04] VITALS: Ht 157.5 cm; Wt 80.9 kg
[~2023-07-04 16:50] MED LIST changes: +BUPR-70 PO; -BUPR100T3 PO; -POTA10CA32 PO; +POTA10CA60 PO
[2023-07-04 18:05] LABS: HEMATOCRIT 44.2 % (36.0-47.0); HEMOGLOBIN 14.9 g/dl (12.0-15.5); MEAN CORPUSCULAR HEMOGLOBIN 31.2 pg (27.0-33.0); MEAN CORPUSCULAR HGB CONC 33.7 g/dl (32.0-36.5); MEAN CORPUSCULAR VOLUME 92.5 fl (80.0-96.0); PLATELET COUNT, AUTOMATED 256 10^3/uL (150-450); RED BLOOD COUNT 4.78 10^6/uL (4.00-5.40); WHITE BLOOD COUNT 7.6 10^3/uL (4.0-10.0)
[2023-07-04 18:28] LABS: AMPHETAMINES LEVEL URINE NEGATIVE (NEGATIVE); BARBITURATES URINE NEGATIVE (NEGATIVE); BENZODIAZEPINES URINE NEGATIVE (NEGATIVE); COCAINE METABOLITE URINE NEGATIVE (NEGATIVE); METHADONE URINE NEGATIVE (NEGATIVE); OPIATES URINE NEGATIVE (NEGATIVE); PHENCYCLIDINE URINE NEGATIVE (NEGATIVE)
[2023-07-04 18:29] LABS: ETHYL ALCOHOL (ETHANOL) < 0.003 % (0.000-0.010)
[2023-07-04 18:31] LABS: ALBUMIN 3.2 G/DL (3.2-5.2); ALKALINE PHOSPHATASE 100 U/L (46-116); ALT/SGPT < 9 U/L (7.0-40); AST/SGOT 14 U/L (<34); BILIRUBIN,DIRECT < 0.1 MG/DL (<0.4); BILIRUBIN,TOTAL 0.3 MG/DL (0.3-1.2); BLOOD UREA NITROGEN 16 MG/DL (9-23); CALCIUM LEVEL 8.8 MG/DL (8.3-10.6); CARBON DIOXIDE LEVEL 27 MMOL/L (20-31); CHLORIDE LEVEL 106 MMOL/L (98-107); CREATININE FOR GFR 0.77 MG/DL (0.55-1.30); GLOMERULAR FILTRATION RATE > 60.0 (>45); GLUCOSE, FASTING 120 MG/DL (74-106); POTASSIUM SERUM 4.1 MMOL/L (3.5-5.1); SALICYLATE LEVEL < 3.0 MG/DL (<30); SODIUM LEVEL 139 MMOL/L (136-145); TOTAL PROTEIN 6.9 G/DL (5.7-8.2)
[2023-07-04 18:33] LABS: THYROID STIMULATING HORMONE 0.968 uIU/ML (0.55-4.78)
[2023-07-04 18:38] LABS: CANNABINOIDS URINE POSITIVE (NEGATIVE)
[2023-07-04] MEDS ORDERED: LATU120T PO (20:43)
[2023-07-04] MEDS ORDERED: LATU1TAB PO (20:46)
[2023-07-04 20:55] LABS: APPEARANCE, URINE CLEAR (CLEAR); BACTERIA, URINE AUTO 1+ (NEGATIVE); BILIRUBIN, URINE AUTO NEGATIVE (NEGATIVE); BLOOD, URINE BLOOD NEGATIVE (NEGATIVE); COLOR, URINE YELLOW (YELLOW); GLUCOSE, URINE (UA) AUTO NEGATIVE (NEGATIVE); KETONE, URINE AUTO NEGATIVE (NEGATIVE); LEUKOCYTE ESTERASE, URINE AUTO TRACE (NEGATIVE); MUCUS, URINE SMALL (NEGATIVE); NITRITE, URINE AUTO NEGATIVE (NEGATIVE); PROTEIN, URINE AUTO NEGATIVE (NEGATIVE); RBC, URINE AUTO 0 /HPF (0-3); SPECIFIC GRAVITY URINE AUTO 1.008 (1.002-1.035); SQUAMOUS EPITHELIAL CELL UR AU 5 /HPF (0-6); UROBILINOGEN, URINE AUTO 0.2 mg/dL (0.0-2.0); WBC, URINE AUTO 2 /HPF (0-3)
[2023-07-04] MEDS ORDERED: traZODone 100 MG TAB PO SCH (21:00)
[2023-07-04] MEDS ORDERED: LURASIDONE 20 MG TAB (LATUDA) PO SCH (21:00)
[2023-07-04] MEDS ORDERED: ACETAMINOPHEN 325 MG TAB PO ONE (22:35)
[2023-07-05] MEDS ORDERED: LURA120T PO (05:24)
[2023-07-05] MEDS ORDERED: TRAZ-189 PO (05:24)
[2023-07-05] MEDS ORDERED: HOME MED LIST COMPLETE! XX SCH (05:25)
[2023-07-05 14:44] VITALS: BP 168/92; TEMP 98.2; O2SAT 97
== END 2023-07-05 14:46 ==
LOC: M ED 16:50
DX: T14.91XA Suicide attempt, initial encounter (principal); V47.0XXA Car driver injured in collision with fixed or stationary object in nontraffic accident, initial encounter; Y92.410 Unspecified street and highway as the place of occurrence of the external cause; Y93.9 Activity, unspecified; Y99.9 Unspecified external cause status; R94.31 Abnormal electrocardiogram [ECG] [EKG]; I10 Essential (primary) hypertension; F31.9 Bipolar disorder, unspecified; J45.909 Unspecified asthma, uncomplicated; F12.10 Cannabis abuse, uncomplicated; Z79.899 Other long term (current) drug therapy; Z88.5 Allergy status to narcotic agent